=== PATIENT | female | born 1930 | race Caucasian/White ===

== ENCOUNTER → 2016-10-07 | Outpatient (CLI) | payer MEDICARE, OTHER ==
[~2016-10-07] MED LIST: AMLO5TAB2 PO; BRIM5DRO3 EACHEYE; CIPR250T27 PO; CLON1PAT2 TD; DOCU-30 PO; FURO-93 PO; GABA100C8 PO; GLIP10TA13 PO; LATA2.5D3 EACHEYE; LOSA100T6 PO; MAGN400T26 PO; METF500T4 PO; OMEP20TA62 PO; OXYC15TA PO; POTA10TA11 PO; SIME80TA16 PO; SPIR50TA PO
== END | disposition home or self-care (01) ==
LOC: CVU 09:38
PROVIDERS: ATTEND Family Medicine
DX: I70.293 Other atherosclerosis of native arteries of extremities, bilateral legs (principal); I10 Essential (primary) hypertension; E11.9 Type 2 diabetes mellitus without complications; B19.20 Unspecified viral hepatitis C without hepatic coma
CPT/HCPCS: 93922; 93925; 93978

== ENCOUNTER 2016-11-04 05:55 | Day surgery (SDC) | payer MEDICARE, OTHER ==
[~2016-11-04] VITALS: Ht 162.6 cm; Wt 57.0 kg
[2016-11-04 07:03] VITALS: BP 172/74
[2016-11-04] MEDS ORDERED: POLY17PO5 PO (07:10)
[2016-11-04] MEDS ORDERED: DOCU-30 PO (07:10)
[2016-11-04] MEDS ORDERED: LIDOCAINE 2%, 20ML ONE (07:14)
[2016-11-04] MEDS ORDERED: PROTAMINE SULFATE 10 MG/ML, 25ML ONE (07:14)
[2016-11-04] MEDS ORDERED: NALOXONE 1 MG/ML, 2ML ONE (07:15)
[2016-11-04] MEDS ORDERED: FENTANYL PF 100 MCG/2ML ONE (07:15)
[2016-11-04] MEDS ORDERED: MIDAZOLAM 1 MG/ML, 5ML ONE (07:15)
[2016-11-04] MEDS ORDERED: HEPARIN 1,000 UNITS/ML, 10ML ONE (07:15)
[2016-11-04 07:19] LABS: BLOOD UREA NITROGEN 17 mg/dL (7-18)
[2016-11-04] MEDS ORDERED: VISIPAQUE 270 MG/ML, 150ML BOTTLE ONE (07:30)
[2016-11-04] MEDS ORDERED: DIPHENHYDRAMINE 50 MG/ML, 1ML ONE (07:33)
== END 2016-11-04 12:50 | disposition home or self-care (01) ==
LOC: OUT 05:55
PROVIDERS: ATTEND Surgery Vascular Surgery
DX: I70.223 Atherosclerosis of native arteries of extremities with rest pain, bilateral legs (principal); I10 Essential (primary) hypertension; M19.90 Unspecified osteoarthritis, unspecified site; K21.9 Gastro-esophageal reflux disease without esophagitis; E11.39 Type 2 diabetes mellitus with other diabetic ophthalmic complication; H40.9 Unspecified glaucoma; M81.0 Age-related osteoporosis without current pathological fracture; Z85.3 Personal history of malignant neoplasm of breast; Z90.710 Acquired absence of both cervix and uterus; Z98.890 Other specified postprocedural states; Z87.891 Personal history of nicotine dependence; Z82.3 Family history of stroke; Z82.49 Family history of ischemic heart disease and other diseases of the circulatory system; Z88.2 Allergy status to sulfonamides; Z86.19 Personal history of other infectious and parasitic diseases
CPT/HCPCS: 36200; 36415; 71275; 74174; 75630; 80048; 85025; 99156; 99157; C1751; C1769; C1894; J1200; J2250; J3010; J3490; Q9966; J1644; J2720; J2310

== ENCOUNTER 2016-11-18 11:16 | Inpatient (IN) | payer MEDICARE, OTHER ==
[~2016-11-18] VITALS: Ht 162.6 cm; Wt 70.9 kg
[~2016-11-18 11:16] MED LIST changes: +GABA-826 PO; -GABA100C8 PO; +NITROPRUSSIDE 25 MG/ML, 2ML ONE; +POLY17PO5 PO
[2016-11-18] MEDS ORDERED: MIDAZOLAM 1 MG/ML, 2ML ONE (11:46)
[2016-11-18] MEDS ORDERED: FENTANYL PF 250 MCG/5ML ONE ×2 (11:46→15:28)
[2016-11-18] MEDS ORDERED: LACTATED RINGERS 1,000 ML IV SCH ×2 (12:00→12:06)
[2016-11-18] MEDS ORDERED: GABA-826 PO (12:13)
[2016-11-18] MEDS ORDERED: ASCO500T8 PO (12:13)
[2016-11-18] MEDS ORDERED: Iron PO (12:13)
[2016-11-18] MEDS ORDERED: ALBUMIN HUMAN 5% 500 ML ONE (12:20)
[2016-11-18] MEDS ORDERED: LIDOCAINE 1%, 2ML SQ PRN (12:30)
[2016-11-18 12:53] VITALS: BP 169/79
[2016-11-18] MEDS ORDERED: BACITRACIN 50,000 UNIT ONE (12:57)
[2016-11-18] MEDS ORDERED: THROMBIN 20,000 UNIT VIAL TP ONE ×2 (12:57→15:05)
[2016-11-18] MEDS ORDERED: PROTAMINE SULFATE 10 MG/ML, 5ML ONE (12:57)
[2016-11-18] MEDS ORDERED: HEPARIN 1,000 UNITS/ML, 10ML ONE (12:57)
[2016-11-18] MEDS ORDERED: HEPARIN 1,000 UNITS/ML, 30ML ONE (13:08)
[2016-11-18] MEDS ORDERED: CALCIUM CHLORIDE 10%, 10ML SYR ONE (13:27)
[2016-11-18] MEDS ORDERED: EPINEPHRINE SYRINGE 0.1 MG/ML, 10ML ONE (13:27)
[2016-11-18] MEDS ORDERED: ROCURONIUM 10 MG/ML ONE (13:27)
[2016-11-18] MEDS ORDERED: SUCCINYLCHOLINE 20 MG/ML, 10ML ONE (13:27)
[2016-11-18] MEDS ORDERED: CEFAZOLIN 1,000 MG ONE (13:27)
[2016-11-18] MEDS ORDERED: PROPOFOL 10 MG/ML, 20ML ONE (13:27)
[2016-11-18] MEDS ORDERED: MANNITOL PMX 20% 500 ML ONE (13:31)
[2016-11-18] MEDS ORDERED: HYDROmorphone 1 MG/ML, 1ML ONE (15:57)
[2016-11-18] MEDS ORDERED: FENTANYL PF 100 MCG/2ML ONE (15:57)
[2016-11-18] MEDS ORDERED: ESMOLOL/NS PMX 250 ML IV PRN (16:00)
[2016-11-18] MEDS ORDERED: OXYcodone 5 MG/5 ML ORAL.SOL UDC PO PRN (16:00)
[2016-11-18] MEDS ORDERED: EPHEDRINE 50 MG/ML, 1ML IVPush PRN (16:00)
[2016-11-18] MEDS ORDERED: ALBUTEROL SULFATE 2.5 MG/3 ML NPPB PRN (16:00)
[2016-11-18] MEDS ORDERED: MIDAZOLAM 1 MG/ML, 2ML IV PRN (16:00)
[2016-11-18] MEDS ORDERED: MEPERIDINE/PF 25MG/0.5ML IVPush PRN (16:00)
[2016-11-18] MEDS: FENTANYL PF 100 MCG/2ML IV PRN ×3 (16:00→21:09)
[2016-11-18] MEDS ORDERED: ONDANSETRON 2MG/ML, 2ML IVPush PRN (16:00)
[2016-11-18] MEDS ORDERED: METOPROLOL 1 MG/ML, 5ML IV PRN (16:00)
[2016-11-18] MEDS ORDERED: hydrALAzine 20 MG/ML, 1ML IV PRN (16:00)
[2016-11-18] MEDS ORDERED: PROMETHAZINE 25 MG/ML, 1ML IV PRN (16:00)
[2016-11-18] MEDS ORDERED: LABETALOL 5MG/ML, 20ML IV PRN (16:00)
[2016-11-18] MEDS ORDERED: ACETAMINOPHEN 325 MG TABLET PO PRN (16:00)
[2016-11-18] MEDS: HYDROmorphone 1 MG/ML, 1ML IV PRN ×2 (16:05→16:30)
[2016-11-18] MEDS: D5%-LACTATED RINGERS 1,000 ML IV SCH (17:52)
[2016-11-18] MEDS: HYDROcodone/APAP 10/325 MG TABLET PO PRN (17:52)
[2016-11-18 18:17] LABS: BLOOD UREA NITROGEN 19 mg/dL (7-18)
[2016-11-18 18:18] LABS: ASPARTATE AMINO TRANSFERASE 49 U/L (15-37)
[2016-11-18 18:26] LABS: DIFF TOTAL CELLS COUNTED 100 CELL DIFF
[2016-11-18 18:27] LABS: VERIFY COUNTS? YES
[2016-11-18 18:28] LABS: ANISOCYTOSIS 1+
[2016-11-18] MEDS: LATANOPROST OPHTH 0.005%, 2.5ML OP SCH (21:04)
[2016-11-18] MEDS: SODIUM CHLORIDE FLUSH 10ML SYR IVF SCH (21:04)
[2016-11-18] MEDS: BRIMONIDINE TARTRATE OPHTH 0.15%, 5ML OP SCH (21:04)
[2016-11-18] MEDS: GABAPENTIN 300 MG CAPSULE PO SCH (21:04)
[2016-11-18] MEDS: ONDANSETRON 2MG/ML, 2ML IV PRN (21:11)
[2016-11-18] MEDS: INSULIN REGULAR, HUMAN 100 UNIT/ML 3ML VIAL LOW DOSE SS SQ-INSULIN SCH (21:45)
[2016-11-18] MEDS: INSULIN ASPART 100 UNITS/ML, PEN SQ-INSULIN SCH (21:50)
[2016-11-19] MEDS: ONDANSETRON 2MG/ML, 2ML IV PRN ×3 (00:36→10:53)
[2016-11-19] MEDS: FENTANYL PF 100 MCG/2ML IV PRN ×2 (00:36→04:25)
[2016-11-19] MEDS: D5%-LACTATED RINGERS 1,000 ML IV SCH (03:41)
[2016-11-19 04:00] VITALS: BP 149/55
[2016-11-19 04:41] LABS: ABG COLLECTION SITE NOT DOCUMENTED
[2016-11-19 04:48] LABS: BLOOD UREA NITROGEN 26 mg/dL (7-18)
[2016-11-19] MEDS: SODIUM CHLORIDE 0.9% 1,000 ML IV SCH ×3 (04:53→20:18)
[2016-11-19 05:45] LABS: DIFF TOTAL CELLS COUNTED 100 CELL DIFF
[2016-11-19 05:47] LABS: ANISOCYTOSIS 1+; VERIFY COUNTS? YES
[2016-11-19] MEDS: GABAPENTIN 100 MG CAPSULE PO SCH ×2 (06:11→12:25)
[2016-11-19] MEDS: INSULIN REGULAR, HUMAN 100 UNIT/ML 3ML VIAL LOW DOSE SS SQ-INSULIN SCH ×2 (07:00→10:45)
[2016-11-19] MEDS: INSULIN ASPART 100 UNITS/ML, PEN SQ-INSULIN SCH ×4 (07:17→21:29)
[2016-11-19] MEDS: HYDROcodone/APAP 10/325 MG TABLET PO PRN (08:20)
[2016-11-19] MEDS: OMEPRAZOLE 20 MG CAPSULE.DR PO SCH (08:21)
[2016-11-19] MEDS: SODIUM CHLORIDE FLUSH 10ML SYR IVF SCH ×2 (08:23→21:00)
[2016-11-19] MEDS: BRIMONIDINE TARTRATE OPHTH 0.15%, 5ML OP SCH ×2 (08:23→21:25)
[2016-11-19] MEDS: CEFTRIAXONE PMX 1GM/50ML 50 ML IV SCH (18:12)
[2016-11-19] MEDS ORDERED: DILTIAZEM 5 MG/ML, 5ML ONE (20:07)
[2016-11-19] MEDS: LABETALOL 5MG/ML, 20ML IVPush PRN (20:19)
[2016-11-19] MEDS ORDERED: DILTIAZEM 5 MG/ML, 5ML IVPush ONE ×2 (20:30)
[2016-11-19 20:46] LABS: IS PT STATUS REG ER OR PRE ER? NO
[2016-11-19] MEDS: GABAPENTIN 300 MG CAPSULE PO SCH (21:24)
[2016-11-19] MEDS: LATANOPROST OPHTH 0.005%, 2.5ML OP SCH (21:25)
[2016-11-20] MEDS: SODIUM CHLORIDE 0.9% 1,000 ML IV SCH ×3 (02:51→13:15)
[2016-11-20 03:08] LABS: BLOOD UREA NITROGEN 29 mg/dL (7-18)
[2016-11-20 03:11] LABS: ASPARTATE AMINO TRANSFERASE 49 U/L (15-37)
[2016-11-20 04:46] LABS: IS PT STATUS REG ER OR PRE ER? NO
[2016-11-20 05:22] VITALS: BP 132/77
[2016-11-20] MEDS: GABAPENTIN 100 MG CAPSULE PO SCH ×2 (06:31→13:15)
[2016-11-20] MEDS: INSULIN ASPART 100 UNITS/ML, PEN SQ-INSULIN SCH ×4 (06:40→21:55)
[2016-11-20] MEDS: OMEPRAZOLE 20 MG CAPSULE.DR PO SCH (07:42)
[2016-11-20] MEDS: HYDROcodone/APAP 10/325 MG TABLET PO PRN ×2 (07:42→18:10)
[2016-11-20] MEDS: BRIMONIDINE TARTRATE OPHTH 0.15%, 5ML OP SCH (09:00)
[2016-11-20] MEDS: SODIUM CHLORIDE FLUSH 10ML SYR IVF SCH ×2 (09:54→21:55)
[2016-11-20] MEDS ORDERED: LATANOPROST OPHTH 0.005%, 2.5ML OP SCH (11:23)
[2016-11-20] MEDS ORDERED: BRIMONIDINE TARTRATE OPHTH 0.15%, 5ML OP SCH ×2 (11:23→21:27)
[2016-11-20] MEDS: CEFTRIAXONE PMX 1GM/50ML 50 ML IV SCH (16:59)
[2016-11-20] MEDS: ENOXAPARIN 40 MG/0.4 ML SQ SCH (17:00)
[2016-11-20 19:52] VITALS: BP 108/76
[2016-11-20] MEDS: GABAPENTIN 300 MG CAPSULE PO SCH (21:54)
[2016-11-21 02:47] VITALS: BP 102/72
[2016-11-21 05:39] LABS: BLOOD UREA NITROGEN 25 mg/dL (7-18)
[2016-11-21] MEDS: HYDROcodone/APAP 10/325 MG TABLET PO PRN ×3 (06:01→23:28)
[2016-11-21] MEDS: GABAPENTIN 100 MG CAPSULE PO SCH ×2 (06:01→11:42)
[2016-11-21 06:42] VITALS: BP 109/76
[2016-11-21] MEDS: INSULIN ASPART 100 UNITS/ML, PEN SQ-INSULIN SCH ×4 (06:57→21:04)
[2016-11-21] MEDS: SODIUM CHLORIDE FLUSH 10ML SYR IVF SCH ×2 (08:15→20:16)
[2016-11-21] MEDS: OMEPRAZOLE 20 MG CAPSULE.DR PO SCH (08:15)
[2016-11-21] MEDS: BRIMONIDINE TARTRATE OPHTH 0.15%, 5ML OP SCH ×2 (08:16→20:13)
[2016-11-21 14:25] VITALS: BP 105/70
[2016-11-21] MEDS: ENOXAPARIN 40 MG/0.4 ML SQ SCH (17:24)
[2016-11-21 20:03] VITALS: BP 117/72
[2016-11-21] MEDS: LATANOPROST OPHTH 0.005%, 2.5ML OP SCH (20:13)
[2016-11-21] MEDS: GABAPENTIN 300 MG CAPSULE PO SCH (20:13)
[2016-11-21] MEDS: CEFTRIAXONE PMX 1GM/50ML 50 ML IV SCH (20:17)
[2016-11-22 03:20] VITALS: BP_SYST 144; BP_SYST 90; BP_DIAS 60; BP_DIAS 64
[2016-11-22 03:32] LABS: BLOOD UREA NITROGEN 22 mg/dL (7-18)
[2016-11-22] MEDS ORDERED: LACTATED RINGERS 500 ML IVBOLUS ONE (04:00)
[2016-11-22 05:00] VITALS: BP_SYST 160; BP_SYST 93; BP_DIAS 58; BP_DIAS 68
[2016-11-22] MEDS: GABAPENTIN 100 MG CAPSULE PO SCH ×2 (06:16→12:00)
[2016-11-22] MEDS: INSULIN ASPART 100 UNITS/ML, PEN SQ-INSULIN SCH ×4 (07:00→20:48)
[2016-11-22] MEDS: OMEPRAZOLE 20 MG CAPSULE.DR PO SCH (08:36)
[2016-11-22] MEDS: SODIUM CHLORIDE FLUSH 10ML SYR IVF SCH ×2 (08:36→20:48)
[2016-11-22] MEDS: BRIMONIDINE TARTRATE OPHTH 0.15%, 5ML OP SCH ×2 (08:36→20:51)
[2016-11-22 08:40] VITALS: BP_SYST 184; BP_SYST 87; BP_DIAS 61; BP_DIAS 64
[2016-11-22 14:30] VITALS: BP 157/62
[2016-11-22] MEDS: HYDROcodone/APAP 10/325 MG TABLET PO PRN (17:42)
[2016-11-22] MEDS: CEFTRIAXONE PMX 1GM/50ML 50 ML IV SCH (18:02)
[2016-11-22] MEDS: ENOXAPARIN 40 MG/0.4 ML SQ SCH (18:02)
[2016-11-22] MEDS: DOCUSATE 100 MG CAPSULE PO SCH (20:48)
[2016-11-22] MEDS: LATANOPROST OPHTH 0.005%, 2.5ML OP SCH (20:52)
[2016-11-22] MEDS: GABAPENTIN 300 MG CAPSULE PO SCH (20:53)
[2016-11-23] VITALS (8 sets, daily range): BP systolic 131–220; BP diastolic 66–91
[2016-11-23] MEDS: HYDROcodone/APAP 10/325 MG TABLET PO PRN ×3 (00:01→21:21)
[2016-11-23] MEDS: LABETALOL 5MG/ML, 20ML IVPush PRN ×5 (03:00→21:15)
[2016-11-23] MEDS: GABAPENTIN 100 MG CAPSULE PO SCH ×2 (06:02→11:47)
[2016-11-23 06:22] LABS: BLOOD UREA NITROGEN 17 mg/dL (7-18)
[2016-11-23] MEDS: BRIMONIDINE TARTRATE OPHTH 0.15%, 5ML OP SCH ×2 (08:15→21:00)
[2016-11-23] MEDS: OMEPRAZOLE 20 MG CAPSULE.DR PO SCH (08:15)
[2016-11-23] MEDS: DOCUSATE 100 MG CAPSULE PO SCH ×2 (08:15→21:06)
[2016-11-23] MEDS: INSULIN ASPART 100 UNITS/ML, PEN SQ-INSULIN SCH ×4 (08:16→21:11)
[2016-11-23] MEDS: SODIUM CHLORIDE FLUSH 10ML SYR IVF SCH ×2 (08:19→21:04)
[2016-11-23] MEDS: POLYETHYLENE GLYCOL 17 GM PACKET PO PRN (13:46)
[2016-11-23] MEDS: ENOXAPARIN 40 MG/0.4 ML SQ SCH (17:04)
[2016-11-23] MEDS: LATANOPROST OPHTH 0.005%, 2.5ML OP SCH (21:00)
[2016-11-23] MEDS: GABAPENTIN 300 MG CAPSULE PO SCH (21:06)
[2016-11-24] VITALS (8 sets, daily range): BP systolic 148–203; BP diastolic 66–82
[2016-11-24 05:32] LABS: BLOOD UREA NITROGEN 10 mg/dL (7-18)
[2016-11-24] MEDS: GABAPENTIN 100 MG CAPSULE PO SCH ×2 (05:41→13:08)
[2016-11-24] MEDS: HYDROcodone/APAP 10/325 MG TABLET PO PRN ×2 (05:42→16:29)
[2016-11-24] MEDS ORDERED: cloniDINE 0.1MG PATCH TD SCH (09:00)
[2016-11-24] MEDS: INSULIN ASPART 100 UNITS/ML, PEN SQ-INSULIN SCH ×4 (09:50→20:56)
[2016-11-24] MEDS: SODIUM CHLORIDE FLUSH 10ML SYR IVF SCH ×2 (09:50→20:39)
[2016-11-24] MEDS: OMEPRAZOLE 20 MG CAPSULE.DR PO SCH (09:50)
[2016-11-24] MEDS: DOCUSATE 100 MG CAPSULE PO SCH ×2 (09:51→20:46)
[2016-11-24] MEDS: metFORMIN 500 MG TABLET PO SCH ×3 (09:51→20:46)
[2016-11-24] MEDS: LISINOPRIL 5 MG TABLET PO SCH ×2 (09:51→21:15)
[2016-11-24] MEDS: POLYETHYLENE GLYCOL 17 GM PACKET PO PRN (09:57)
[2016-11-24] MEDS: BRIMONIDINE TARTRATE OPHTH 0.15%, 5ML OP SCH ×2 (10:01→20:46)
[2016-11-24] MEDS: LABETALOL 5MG/ML, 20ML IVPush PRN ×3 (10:41→20:37)
[2016-11-24] MEDS ORDERED: BISACODYL 10 MG SUPP PR PRN (17:30)
[2016-11-24] MEDS ORDERED: MAGNESIUM HYDROXIDE 8%, 30ML UDC PO SCH (17:30)
[2016-11-24] MEDS: ENOXAPARIN 40 MG/0.4 ML SQ SCH (17:57)
[2016-11-24] MEDS: hydrALAzine 20 MG/ML, 1ML IV PRN ×2 (17:58→23:26)
[2016-11-24] MEDS ORDERED: LACTULOSE 20 GM/30 ML UDC PO SCH (20:00)
[2016-11-24] MEDS: LATANOPROST OPHTH 0.005%, 2.5ML OP SCH (20:46)
[2016-11-24] MEDS: GABAPENTIN 300 MG CAPSULE PO SCH (20:46)
[2016-11-25 01:00] VITALS: BP 133/64
[2016-11-25] MEDS: INSULIN ASPART 100 UNITS/ML, PEN SQ-INSULIN SCH ×4 (06:27→21:30)
[2016-11-25] MEDS: GABAPENTIN 100 MG CAPSULE PO SCH ×2 (06:27→11:49)
[2016-11-25] MEDS: hydrALAzine 20 MG/ML, 1ML IV PRN (08:21)
[2016-11-25] MEDS: OMEPRAZOLE 20 MG CAPSULE.DR PO SCH (08:22)
[2016-11-25] MEDS: LISINOPRIL 5 MG TABLET PO SCH (08:22)
[2016-11-25] MEDS: BRIMONIDINE TARTRATE OPHTH 0.15%, 5ML OP SCH ×2 (08:22→20:26)
[2016-11-25] MEDS: metFORMIN 500 MG TABLET PO SCH ×3 (08:23→20:13)
[2016-11-25] MEDS: SODIUM CHLORIDE FLUSH 10ML SYR IVF SCH ×2 (08:23→20:26)
[2016-11-25] MEDS: DOCUSATE 100 MG CAPSULE PO SCH ×2 (08:24→20:13)
[2016-11-25 08:43] VITALS: BP 196/75
[2016-11-25 08:47] LABS: OCCBLD OBC PASS
[2016-11-25] MEDS ORDERED: HYDR-3307 PO (12:17)
[2016-11-25] MEDS ORDERED: INSU100I18 SQ-INSULIN (12:17)
[2016-11-25 13:27] VITALS: BP 153/71
[2016-11-25] MEDS: ENOXAPARIN 40 MG/0.4 ML SQ SCH (17:15)
[2016-11-25 19:40] VITALS: BP 194/61
[2016-11-25] MEDS: GABAPENTIN 300 MG CAPSULE PO SCH (20:13)
[2016-11-25] MEDS: LISINOPRIL 10 MG TABLET PO SCH (20:13)
[2016-11-25] MEDS: LATANOPROST OPHTH 0.005%, 2.5ML OP SCH (20:26)
[2016-11-25 22:03] VITALS: BP 148/68
[2016-11-26 01:20] VITALS: BP 132/60
[2016-11-26] MEDS: GABAPENTIN 100 MG CAPSULE PO SCH ×2 (05:36→12:08)
[2016-11-26] MEDS: INSULIN ASPART 100 UNITS/ML, PEN SQ-INSULIN SCH ×2 (06:33→12:08)
[2016-11-26 06:37] VITALS: BP 193/62
[2016-11-26] MEDS: LISINOPRIL 10 MG TABLET PO SCH (08:55)
[2016-11-26] MEDS: metFORMIN 500 MG TABLET PO SCH (08:55)
[2016-11-26] MEDS: OMEPRAZOLE 20 MG CAPSULE.DR PO SCH (08:55)
[2016-11-26] MEDS: BRIMONIDINE TARTRATE OPHTH 0.15%, 5ML OP SCH (08:55)
[2016-11-26] MEDS: SODIUM CHLORIDE FLUSH 10ML SYR IVF SCH (08:56)
[2016-11-26] MEDS: DOCUSATE 100 MG CAPSULE PO SCH (08:56)
[2016-11-26 12:16] VITALS: BP 184/65
[2016-11-26] MEDS: LABETALOL 5MG/ML, 20ML IVPush PRN (12:42)
== END 2016-11-26 14:49 | DRG 269 ==
LOC: ORIP 11:16 → CCU 16:40 → 5SO 11-20 18:38 → 4NOR 11-24 20:15
PROVIDERS: ADMIT Surgery Vascular Surgery
PROC: 04C00ZZ Extirpation of Matter from Abdominal Aorta, Open Approach (ICD-10-PCS; principal; 2016-11-18 13:30)
PROC: 0T9B70Z Drainage of Bladder with Drainage Device, Via Natural or Artificial Opening (ICD-10-PCS; 2016-11-19)
DX: I70.0 Atherosclerosis of aorta (principal); E46 Unspecified protein-calorie malnutrition; I47.1 Supraventricular tachycardia; J98.11 Atelectasis; K91.3 Postprocedural intestinal obstruction; N39.0 Urinary tract infection, site not specified; E11.51 Type 2 diabetes mellitus with diabetic peripheral angiopathy without gangrene; I77.1 Stricture of artery; K74.60 Unspecified cirrhosis of liver; B18.2 Chronic viral hepatitis C; M51.37 Other intervertebral disc degeneration, lumbosacral region; D64.9 Anemia, unspecified; G89.29 Other chronic pain; I11.9 Hypertensive heart disease without heart failure; I70.211 Atherosclerosis of native arteries of extremities with intermittent claudication, right leg; K21.9 Gastro-esophageal reflux disease without esophagitis; K64.9 Unspecified hemorrhoids; Y83.8 Other surgical procedures as the cause of abnormal reaction of the patient, or of later complication, without mention of misadventure at the time of the procedure; Y82.8 Other medical devices associated with adverse incidents; Z79.84 Long term (current) use of oral hypoglycemic drugs; Z79.899 Other long term (current) drug therapy; Z85.3 Personal history of malignant neoplasm of breast; Z88.2 Allergy status to sulfonamides; Z90.710 Acquired absence of both cervix and uterus; I70.8 Atherosclerosis of other arteries
CPT/HCPCS: 36415; 36600; 71010; 80048; 80053; 81001; 81003; 82272; 82803; 82962; 83735; 84484; 85018; 85025; 85610; 85730; 86850; 86900; 86923; 87040; 87081; 87086; 93005; J0690; J0696; J1170; J1644; J1650; J1815; J2250; J2405; J2704; J2720; J3010; J3490; J7120; P9045; C1757; C1781; J0330; J0360; J7030; J7121

== ENCOUNTER 2017-01-06 18:39 | Emergency (ER) | payer MEDICARE, OTHER ==
[~2017-01-06] VITALS: Ht 162.6 cm; Wt 56.0 kg
[~2017-01-06 18:39] MED LIST changes: +ASCO500T8 PO; +HYDR-3307 PO; +INSU100I18 SQ-INSULIN; +Iron PO; -NITROPRUSSIDE 25 MG/ML, 2ML ONE
[2017-01-06] MEDS ORDERED: CHOLESTEROL MED (19:16)
[2017-01-06] MEDS ORDERED: DIURETIC (19:16)
[2017-01-06] MEDS ORDERED: ALUMINUM/MAG/SIMETHICONE 30 ML UDC PO ONE (19:30)
[2017-01-06 19:57] LABS: BLOOD UREA NITROGEN 26 mg/dL (7-18)
[2017-01-06 20:03] LABS: IS PT STATUS REG ER OR PRE ER? YES
[2017-01-06] MEDS ORDERED: SODIUM CHLORIDE 0.9% 1,000 ML IV ONE (20:03)
[2017-01-06] MEDS ORDERED: SODIUM CHLORIDE 0.9% 1,000ML IVBOLUS ONE (20:30)
[2017-01-06] MEDS ORDERED: SODIUM CHLORIDE FLUSH 10ML SYR IVF ONE (20:30)
[2017-01-06] MEDS ORDERED: LABETALOL 5MG/ML, 20ML ONE (20:52)
[2017-01-06] MEDS ORDERED: LABETALOL 5MG/ML, 20ML IVPush STA (20:55)
[2017-01-06] MEDS ORDERED: LABETALOL 5MG/ML, 20ML IVPush ONE ×2 (21:00→22:00)
[2017-01-06] MEDS: LABETALOL 5MG/ML, 20ML IVPush ONE ×2 (21:00→21:55)
[2017-01-06] MEDS ORDERED: FAMOTIDINE 20 MG/2 ML IVPush ONE (22:00)
[2017-01-06] MEDS ORDERED: FAMOTIDINE 20 MG/2 ML ONE (22:09)
[2017-01-06 23:31] VITALS: BP 148/60
== END 2017-01-06 23:54 | disposition home or self-care (01) ==
LOC: ED 21:30
DX: I10 Essential (primary) hypertension (principal); E86.0 Dehydration; K21.9 Gastro-esophageal reflux disease without esophagitis; E11.9 Type 2 diabetes mellitus without complications; Z90.710 Acquired absence of both cervix and uterus
CPT/HCPCS: 36415; 80048; 82040; 84484; 85025; 93005; 96361; 96374; 96375; 99285; J7030; S0028

== ENCOUNTER 2017-08-21 18:52 | Inpatient (IN) | payer MEDICARE, OTHER ==
[~2017-08-21] VITALS: Ht 162.6 cm; Wt 67.8 kg
[~2017-08-21 18:52] MED LIST changes: +CHOLESTEROL MED; +DIURETIC; +DOCU-131 PO; -DOCU-30 PO
[2017-08-21] MEDS ORDERED: CLON0.1T PO (19:28)
[2017-08-21] MEDS ORDERED: GABA-827 PO (19:29)
[2017-08-21] MEDS ORDERED: FERR324T5 PO (19:30)
[2017-08-21] MEDS ORDERED: COLE1TAB2 PO (19:31)
[2017-08-21] MEDS ORDERED: LISI2.5T PO (19:32)
[2017-08-21] MEDS ORDERED: TRIA1TAB3 PO (19:33)
[2017-08-21] MEDS ORDERED: SODIUM CHLORIDE 0.9% 1,000 ML IV ONE (19:38)
[2017-08-21] MEDS ORDERED: PANTOPRAZOLE 40 MG IV ONE (19:57)
[2017-08-21] MEDS ORDERED: PANTOPRAZOLE 40 MG IV IVPush ONE (20:00)
[2017-08-21] MEDS ORDERED: DIPHENHYDRAMINE 50 MG/ML, 1ML IVPush ONE (20:00)
[2017-08-21] MEDS ORDERED: SODIUM CHLORIDE FLUSH 10ML SYR IVF ONE (20:00)
[2017-08-21 20:10] LABS: BASOPHILS # (AUTO) 0.03 x10^3/uL (0-0.1); BASOPHILS % (AUTO) 0 % (0-1); EOSINOPHILS # (AUTO) 0.48 x10^3/uL (0-0.4); EOSINOPHILS % (AUTO) 5 % (1-7); LYMPHOCYTES # (AUTO) 1.72 x10^3/uL (1-3.4); LYMPHOCYTES % (AUTO) 19 % (22-44); MD NO; MEAN CORPUSCULAR HEMOGLOBIN 26.5 pg (27.0-34.8); MEAN CORPUSCULAR HGB CONC 32.7 g/dL (32.4-35.8); MEAN CORPUSCULAR VOLUME 81.1 fL (80-100); MEAN PLATELET VOLUME 8.5 fL (7.4-10.4); MONOCYTES # (AUTO) 0.67 x10^3/uL (0.2-0.8); MONOCYTES % (AUTO) 8 % (2-9); NEUTROPHILS # (AUTO) 6.03 x10^3/uL (1.8-6.8); NEUTROPHILS % (AUTO) 68 % (42-75); PLATELET COUNT 314 x10^3/uL (130-400); RED CELL DISTRIBUTION WIDTH 18.8 % (9.6-15.2)
[2017-08-21 20:19] LABS: PROTHROMBIN TIME 10.4 Seconds (9.6-11.5)
[2017-08-21 20:23] LABS: ALANINE AMINOTRANSFERASE 36 U/L (12-78); ANION GAP 15 mmol/L (5-15); CALCIUM 8.7 mg/dL (8.5-10.1); CHLORIDE 104 mmol/L (98-107); CREATININE 1.69 mg/dL (0.55-1.02)
[2017-08-21 20:25] LABS: ALKALINE PHOSPHATASE 282 U/L (45-117); BILIRUBIN,TOTAL 0.2 mg/dL (0.2-1.0)
[2017-08-21 20:29] LABS: TROPONIN I 0.032 ng/mL (0.000-0.045)
[2017-08-21] MEDS ORDERED: DIPHENHYDRAMINE 50 MG/ML, 1ML ONE (20:29)
[2017-08-21] MEDS ORDERED: methylPREDNISolone SOD SUCC 125 MG/2 ML ONE (20:30)
[2017-08-21] MEDS: methylPREDNISolone SOD SUCC 125 MG/2 ML IVPush SCH ×2 (20:34→23:28)
[2017-08-21] MEDS ORDERED: SODIUM CHLORIDE FLUSH 10ML SYR IVF PRN (22:30)
[2017-08-21] MEDS: CLONIDINE MC SCH (23:00)
[2017-08-21] MEDS: [UNRECOGNIZED DRUG - OTHER] MC SCH (23:00)
[2017-08-21] MEDS ORDERED: ONDANSETRON 2MG/ML, 2ML IVPush PRN (23:00)
[2017-08-21 23:34] LABS: HEMOGLOBIN A1C 11.7 % (4.2-6.3)
[2017-08-21 23:47] VITALS: BP 99/65
[2017-08-21] MEDS ORDERED: OMNIPAQUE 350 MG/ML, 100ML BOTTLE ONE (23:48)
[2017-08-21] MEDS: GABAPENTIN 300 MG CAPSULE PO SCH (23:57)
[2017-08-21] MEDS: SODIUM CHLORIDE 0.9% 1,000 ML IV SCH (23:58)
[2017-08-21] MEDS: BISACODYL 10 MG SUPP PR SCH (23:58)
[2017-08-22] VITALS (7 sets, daily range): BP systolic 98–219; BP diastolic 58–85
[2017-08-22] MEDS: BRIMONIDINE TARTRATE OPHTH 0.15%, 5ML EACHEYE SCH ×3 (00:26→21:25)
[2017-08-22] MEDS: INSULIN LISPRO 100 UNITS/ML, PEN SQ-INSULIN SCH ×5 (01:22→21:27)
[2017-08-22 01:37] LABS: MICROSCOPIC AUTO
[2017-08-22 01:41] LABS: CULTURE INDICATED? YES
[2017-08-22 02:54] LABS: ALBUMIN 2.6 g/dL (3.4-5.0); ANION GAP 10 mmol/L (5-15); BASOPHILS # (AUTO) 0.02 x10^3/uL (0-0.1); BASOPHILS % (AUTO) 0 % (0-1); CALCIUM 8.3 mg/dL (8.5-10.1); CHLORIDE 108 mmol/L (98-107); EOSINOPHILS # (AUTO) 0.04 x10^3/uL (0-0.4); EOSINOPHILS % (AUTO) 1 % (1-7); LYMPHOCYTES # (AUTO) 0.67 x10^3/uL (1-3.4); LYMPHOCYTES % (AUTO) 9 % (22-44); MD NO; MEAN CORPUSCULAR HEMOGLOBIN 26.5 pg (27.0-34.8); MEAN CORPUSCULAR HGB CONC 32.7 g/dL (32.4-35.8); MEAN PLATELET VOLUME 8.8 fL (7.4-10.4); MONOCYTES # (AUTO) 0.11 x10^3/uL (0.2-0.8); MONOCYTES % (AUTO) 2 % (2-9); NEUTROPHILS # (AUTO) 6.47 x10^3/uL (1.8-6.8); NEUTROPHILS % (AUTO) 89 % (42-75); PLATELET COUNT 244 x10^3/uL (130-400); RED BLOOD COUNT 3.21 x10^6/uL (3.82-5.3); RED CELL DISTRIBUTION WIDTH 19.4 % (9.6-15.2)
[2017-08-22 02:57] LABS: ALANINE AMINOTRANSFERASE 29 U/L (12-78); ALKALINE PHOSPHATASE 238 U/L (45-117); BILIRUBIN,TOTAL 0.4 mg/dL (0.2-1.0); CREATININE 1.31 mg/dL (0.55-1.02); TOTAL PROTEIN 6.2 g/dL (6.4-8.2)
[2017-08-22 02:59] LABS: TROPONIN I 0.024 ng/mL (0.000-0.045)
[2017-08-22] MEDS: CEFTRIAXONE PMX 1GM/50ML 50 ML IV SCH (04:36)
[2017-08-22] MEDS: [UNRECOGNIZED DRUG - OTHER] MC SCH ×3 (07:00→22:15)
[2017-08-22] MEDS: CLONIDINE MC SCH ×3 (07:00→22:15)
[2017-08-22] MEDS: SODIUM CHLORIDE 0.9% 1,000 ML IV SCH ×2 (08:00→17:15)
[2017-08-22] MEDS: COLESTIPOL 1 GM TABLET PO SCH ×2 (08:16→21:25)
[2017-08-22] MEDS: PANTOPRAZOLE 40 MG IV IVPush SCH ×2 (08:16→21:26)
[2017-08-22] MEDS: ASCORBIC ACID 500 MG TABLET PO SCH (08:17)
[2017-08-22] MEDS: BISACODYL 10 MG SUPP PR SCH (08:17)
[2017-08-22 08:47] LABS: TROPONIN I < 0.015 ng/mL (0.000-0.045)
[2017-08-22] MEDS ORDERED: OMEPRAZOLE 20 MG CAPSULE.DR PO SCH (09:00)
[2017-08-22] MEDS ORDERED: BISACODYL 10 MG SUPP PR PRN (12:00)
[2017-08-22] MEDS: SODIUM POLYSTYRENE SULFONATE ORAL SUSP PO SCH ×3 (12:09→22:13)
[2017-08-22] MEDS: GABAPENTIN 300 MG CAPSULE PO SCH (21:25)
[2017-08-22] MEDS: MOVIPREP POWDER 1 PREP KIT PO SCH (21:25)
[2017-08-23 01:44] VITALS: BP 114/68
[2017-08-23] MEDS: CEFTRIAXONE PMX 1GM/50ML 50 ML IV SCH (04:28)
[2017-08-23] MEDS: MOVIPREP POWDER 1 PREP KIT PO SCH ×2 (05:03→20:35)
[2017-08-23 05:15] LABS: BASOPHILS # (AUTO) 0.02 x10^3/uL (0-0.1); BASOPHILS % (AUTO) 0 % (0-1); EOSINOPHILS # (AUTO) 0.25 x10^3/uL (0-0.4); EOSINOPHILS % (AUTO) 3 % (1-7); LYMPHOCYTES # (AUTO) 1.19 x10^3/uL (1-3.4); LYMPHOCYTES % (AUTO) 15 % (22-44); MD NO; MEAN CORPUSCULAR HEMOGLOBIN 26.4 pg (27.0-34.8); MEAN CORPUSCULAR HGB CONC 32.5 g/dL (32.4-35.8); MEAN CORPUSCULAR VOLUME 81.2 fL (80-100); MEAN PLATELET VOLUME 7.7 fL (7.4-10.4); MONOCYTES # (AUTO) 0.56 x10^3/uL (0.2-0.8); MONOCYTES % (AUTO) 7 % (2-9); NEUTROPHILS # (AUTO) 5.77 x10^3/uL (1.8-6.8); NEUTROPHILS % (AUTO) 74 % (42-75); PLATELET COUNT 288 x10^3/uL (130-400); RED BLOOD COUNT 3.27 x10^6/uL (3.82-5.3); RED CELL DISTRIBUTION WIDTH 19.3 % (9.6-15.2)
[2017-08-23 05:27] LABS: CHLORIDE 108 mmol/L (98-107)
[2017-08-23 05:34] LABS: ALANINE AMINOTRANSFERASE 27 U/L (12-78); ALBUMIN 2.7 g/dL (3.4-5.0); ALKALINE PHOSPHATASE 206 U/L (45-117); ANION GAP 13 mmol/L (5-15); BILIRUBIN,TOTAL 0.3 mg/dL (0.2-1.0); CALCIUM 7.7 mg/dL (8.5-10.1); CREATININE 1.03 mg/dL (0.55-1.02)
[2017-08-23] MEDS: [UNRECOGNIZED DRUG - OTHER] MC SCH ×3 (06:48→20:36)
[2017-08-23] MEDS: CLONIDINE MC SCH ×3 (06:48→20:36)
[2017-08-23 06:51] VITALS: BP 156/79
[2017-08-23] MEDS: PANTOPRAZOLE 40 MG IV IVPush SCH ×2 (07:34→20:35)
[2017-08-23] MEDS: BRIMONIDINE TARTRATE OPHTH 0.15%, 5ML EACHEYE SCH ×2 (07:49→20:34)
[2017-08-23] MEDS ORDERED: GOLYTELY 4,000ML ORAL.SOL ONE (08:53)
[2017-08-23] MEDS ORDERED: GOLYTELY 4,000ML ORAL.SOL PO ONE (09:00)
[2017-08-23] MEDS: INSULIN LISPRO 100 UNITS/ML, PEN SQ-INSULIN SCH ×4 (09:43→20:35)
[2017-08-23] MEDS: SODIUM CHLORIDE 0.9% 1,000 ML IV SCH ×3 (10:25→17:14)
[2017-08-23] MEDS: COLESTIPOL 1 GM TABLET PO SCH ×2 (11:50→20:35)
[2017-08-23] MEDS ORDERED: ESMOLOL 100 MG/10 ML ONE (13:27)
[2017-08-23] MEDS ORDERED: ADENOSINE 6 MG/2 ML ONE (13:31)
[2017-08-23] MEDS ORDERED: LABETALOL 5MG/ML, 20ML ONE (14:09)
[2017-08-23] MEDS ORDERED: LABETALOL 5MG/ML, 20ML IV PRN (14:30)
[2017-08-23] MEDS: ASCORBIC ACID 500 MG TABLET PO SCH (15:08)
[2017-08-23 15:15] VITALS: BP 152/81
[2017-08-23] MEDS ORDERED: hydrALAzine 20 MG/ML, 1ML ONE (15:40)
[2017-08-23] MEDS ORDERED: PROPOFOL 10 MG/ML, 50ML ONE (15:40)
[2017-08-23 19:33] VITALS: BP 108/68
[2017-08-23] MEDS: GABAPENTIN 300 MG CAPSULE PO SCH (20:35)
[2017-08-24 02:00] VITALS: BP 132/74
[2017-08-24] MEDS: SODIUM CHLORIDE 0.9% 1,000 ML IV SCH ×2 (03:43→12:41)
[2017-08-24] MEDS: MOVIPREP POWDER 1 PREP KIT PO SCH (03:43)
[2017-08-24] MEDS: CEFTRIAXONE PMX 1GM/50ML 50 ML IV SCH (03:43)
[2017-08-24] MEDS: [UNRECOGNIZED DRUG - OTHER] MC SCH ×3 (07:00→20:24)
[2017-08-24] MEDS: CLONIDINE MC SCH ×3 (07:00→20:24)
[2017-08-24 07:07] VITALS: BP 109/70
[2017-08-24] MEDS: INSULIN LISPRO 100 UNITS/ML, PEN SQ-INSULIN SCH ×4 (07:48→20:22)
[2017-08-24 08:55] LABS: BASOPHILS # (AUTO) 0.03 x10^3/uL (0-0.1); BASOPHILS % (AUTO) 0 % (0-1); EOSINOPHILS # (AUTO) 0.16 x10^3/uL (0-0.4); EOSINOPHILS % (AUTO) 2 % (1-7); LYMPHOCYTES # (AUTO) 1.08 x10^3/uL (1-3.4); LYMPHOCYTES % (AUTO) 13 % (22-44); MD NO; MEAN CORPUSCULAR HEMOGLOBIN 26.3 pg (27.0-34.8); MEAN CORPUSCULAR HGB CONC 32.2 g/dL (32.4-35.8); MEAN CORPUSCULAR VOLUME 81.8 fL (80-100); MONOCYTES # (AUTO) 0.49 x10^3/uL (0.2-0.8); MONOCYTES % (AUTO) 6 % (2-9); NEUTROPHILS # (AUTO) 6.41 x10^3/uL (1.8-6.8); NEUTROPHILS % (AUTO) 79 % (42-75); PLATELET COUNT 316 x10^3/uL (130-400); RED BLOOD COUNT 3.33 x10^6/uL (3.82-5.3); RED CELL DISTRIBUTION WIDTH 19.6 % (9.6-15.2)
[2017-08-24 09:05] LABS: ANION GAP 11 mmol/L (5-15); CALCIUM 7.4 mg/dL (8.5-10.1); CHLORIDE 107 mmol/L (98-107); CREATININE 1.07 mg/dL (0.55-1.02)
[2017-08-24] MEDS: ASCORBIC ACID 500 MG TABLET PO SCH (09:41)
[2017-08-24] MEDS: COLESTIPOL 1 GM TABLET PO SCH ×2 (09:41→20:24)
[2017-08-24] MEDS: BRIMONIDINE TARTRATE OPHTH 0.15%, 5ML EACHEYE SCH ×2 (09:41→20:22)
[2017-08-24] MEDS: PANTOPRAZOLE 40 MG IV IVPush SCH (09:41)
[2017-08-24 12:40] VITALS: BP 91/63
[2017-08-24] MEDS ORDERED: IRON DEXTRAN IV PER PHARMACY IV PRN (13:30)
[2017-08-24] MEDS ORDERED: EPINEPHRINE SYRINGE 0.1 MG/ML, 10ML ONE (13:52)
[2017-08-24] MEDS: metFORMIN 500 MG TABLET PO SCH ×2 (13:56→20:23)
[2017-08-24] MEDS ORDERED: IRON DEXTRAN COMPLEX 25 MG in SODIUM CHLORIDE 0.9% 50 ML IV ONE (14:00)
[2017-08-24] MEDS ORDERED: IRON DEXTRAN COMPLEX 1,400 MG in SODIUM CHLORIDE 0.9% 250 ML IV ONE (15:00)
[2017-08-24] MEDS: POLYETHYLENE GLYCOL 17 GM PACKET PO SCH (16:06)
[2017-08-24 20:00] VITALS: BP 113/81
[2017-08-24] MEDS: GABAPENTIN 300 MG CAPSULE PO SCH (20:23)
[2017-08-25 02:00] VITALS: BP 152/77
[2017-08-25] MEDS: CEFTRIAXONE PMX 1GM/50ML 50 ML IV SCH (03:53)
[2017-08-25 05:36] LABS: BASOPHILS # (AUTO) 0.03 x10^3/uL (0-0.1); BASOPHILS % (AUTO) 1 % (0-1); EOSINOPHILS # (AUTO) 0.29 x10^3/uL (0-0.4); EOSINOPHILS % (AUTO) 5 % (1-7); LYMPHOCYTES # (AUTO) 1.43 x10^3/uL (1-3.4); LYMPHOCYTES % (AUTO) 22 % (22-44); MD NO; MEAN CORPUSCULAR HEMOGLOBIN 26.9 pg (27.0-34.8); MEAN CORPUSCULAR HGB CONC 33.1 g/dL (32.4-35.8); MEAN CORPUSCULAR VOLUME 81.2 fL (80-100); MEAN PLATELET VOLUME 7.8 fL (7.4-10.4); MONOCYTES # (AUTO) 0.44 x10^3/uL (0.2-0.8); MONOCYTES % (AUTO) 7 % (2-9); NEUTROPHILS # (AUTO) 4.23 x10^3/uL (1.8-6.8); NEUTROPHILS % (AUTO) 66 % (42-75); PLATELET COUNT 245 x10^3/uL (130-400); RED BLOOD COUNT 3.09 x10^6/uL (3.82-5.3); RED CELL DISTRIBUTION WIDTH 19.4 % (9.6-15.2)
[2017-08-25 05:54] LABS: ANION GAP 12 mmol/L (5-15); CALCIUM 7.7 mg/dL (8.5-10.1); CHLORIDE 108 mmol/L (98-107)
[2017-08-25 05:58] LABS: CREATININE 0.87 mg/dL (0.55-1.02)
[2017-08-25] MEDS: [UNRECOGNIZED DRUG - OTHER] MC SCH (07:00)
[2017-08-25] MEDS: CLONIDINE MC SCH (07:00)
[2017-08-25] MEDS ORDERED: POTASSIUM CHLORIDE 20 MEQ PACKET PO ONE (07:30)
[2017-08-25 08:04] VITALS: BP 176/92
[2017-08-25] MEDS: INSULIN LISPRO 100 UNITS/ML, PEN SQ-INSULIN SCH (08:05)
[2017-08-25] MEDS: metFORMIN 500 MG TABLET PO SCH (08:05)
[2017-08-25] MEDS: COLESTIPOL 1 GM TABLET PO SCH (08:06)
[2017-08-25] MEDS: ASCORBIC ACID 500 MG TABLET PO SCH (08:06)
[2017-08-25] MEDS: BRIMONIDINE TARTRATE OPHTH 0.15%, 5ML EACHEYE SCH (08:07)
[2017-08-25] MEDS ORDERED: CEFD300C37 PO ×2 (08:17→08:28)
[2017-08-25] MEDS ORDERED: CALC625T13 PO (08:42)
[2017-08-25] MEDS ORDERED: FERROUS SULFATE 325 MG TABLET PO SCH (09:00)
[2017-08-25] MEDS ORDERED: CALCIUM POLYCARBOPHIL 625 MG TABLET PO SCH (09:00)
[2017-08-25] MEDS ORDERED: LISINOPRIL 5 MG TABLET PO SCH (09:00)
[2017-08-25] MEDS ORDERED: TRIAMTERENE-HCTZ 37.5/25 MG TABLET PO SCH (09:00)
[2017-08-25] MEDS ORDERED: GABAPENTIN 100 MG CAPSULE PO SCH (09:00)
[2017-08-25] MEDS: POLYETHYLENE GLYCOL 17 GM PACKET PO SCH (09:07)
[2017-08-25 09:10] VITALS: BP 115/73
[2017-08-25 14:06] VITALS: BP 129/78
== END 2017-08-25 18:38 | disposition home health service (06) | DRG 378 ==
LOC: ED 20:03 → EDIP 22:04 → 4WST 23:20
PROVIDERS: ADMIT Internal Medicine; ATTEND Internal Medicine
PROC: 0D758ZZ Dilation of Esophagus, Via Natural or Artificial Opening Endoscopic (ICD-10-PCS; 2017-08-23)
PROC: 0DJD8ZZ Inspection of Lower Intestinal Tract, Via Natural or Artificial Opening Endoscopic (ICD-10-PCS; 2017-08-23)
PROC: 0DB98ZX Excision of Duodenum, Via Natural or Artificial Opening Endoscopic, Diagnostic (ICD-10-PCS; principal; 2017-08-23 10:30)
DX: K92.2 Gastrointestinal hemorrhage, unspecified (principal); E44.0 Moderate protein-calorie malnutrition; N17.9 Acute kidney failure, unspecified; E87.2 Acidosis; E87.5 Hyperkalemia; K22.2 Esophageal obstruction; E11.51 Type 2 diabetes mellitus with diabetic peripheral angiopathy without gangrene; N12 Tubulo-interstitial nephritis, not specified as acute or chronic; D64.9 Anemia, unspecified; K59.00 Constipation, unspecified; K44.9 Diaphragmatic hernia without obstruction or gangrene; M54.30 Sciatica, unspecified side; K22.70 Barrett's esophagus without dysplasia; K80.20 Calculus of gallbladder without cholecystitis without obstruction; K74.60 Unspecified cirrhosis of liver; G89.29 Other chronic pain; M54.9 Dorsalgia, unspecified; K21.9 Gastro-esophageal reflux disease without esophagitis; I10 Essential (primary) hypertension; B96.20 Unspecified Escherichia coli [E. coli] as the cause of diseases classified elsewhere; Z90.710 Acquired absence of both cervix and uterus; Z79.84 Long term (current) use of oral hypoglycemic drugs; Z79.899 Other long term (current) drug therapy; Z85.3 Personal history of malignant neoplasm of breast; Z68.25 Body mass index [BMI] 25.0-25.9, adult
CPT/HCPCS: 36415; 74022; 74177; 80048; 80053; 81001; 82140; 82728; 82962; 83036; 83540; 83550; 83605; 83690; 84466; 84484; 85025; 85610; 85730; 87077; 87086; 87186; 88305; 93005; 96360; 96361; 96375; J0696; J1750; J2405; J2704; Q9967; C9113; J0360; J1200; J1815; J2930; J7030; J7050

== ENCOUNTER 2017-09-06 17:00 | Inpatient (IN) | payer MEDICARE, OTHER ==
[~2017-09-06] VITALS: Ht 162.6 cm; Wt 58.3 kg
[~2017-09-06 17:00] MED LIST changes: +CALC625T13 PO; +CEFD300C37 PO; +CLON0.1T PO; +COLE1TAB2 PO; +FERR324T5 PO; +GABA-827 PO; +LISI2.5T PO; +TRIA1TAB3 PO
[2017-09-06] MEDS ORDERED: SODIUM CHLORIDE FLUSH 10ML SYR IVF ONE (17:30)
[2017-09-06 17:49] LABS: INTERNATIONAL NORMALIZED RATIO 1.05 (0.93-1.1); PROTHROMBIN TIME 10.8 Seconds (9.6-11.5)
[2017-09-06 17:50] LABS: MEAN CORPUSCULAR HEMOGLOBIN 28.9 pg (27.0-34.8); MEAN CORPUSCULAR VOLUME 87.7 fL (80-100); MEAN PLATELET VOLUME 8.7 fL (7.4-10.4); PLATELET COUNT 267 x10^3/uL (130-400); RED BLOOD COUNT 3.97 x10^6/uL (3.82-5.3); RED CELL DISTRIBUTION WIDTH 25.5 % (9.6-15.2)
[2017-09-06 17:56] LABS: ALANINE AMINOTRANSFERASE 43 U/L (12-78); ALBUMIN 3.1 g/dL (3.4-5.0); ANION GAP 17 mmol/L (5-15); CALCIUM 8.8 mg/dL (8.5-10.1); CHLORIDE 95 mmol/L (98-107)
[2017-09-06 18:01] LABS: ALKALINE PHOSPHATASE 384 U/L (45-117); BILIRUBIN,TOTAL 0.5 mg/dL (0.2-1.0); CREATININE 1.43 mg/dL (0.55-1.02); TOTAL PROTEIN 7.6 g/dL (6.4-8.2); TROPONIN I < 0.015 ng/mL (0.000-0.045)
[2017-09-06 18:08] LABS: BASOPHILS # (AUTO) 0.06 x10^3/uL (0-0.1); BASOPHILS % (AUTO) 1 % (0-1); EOSINOPHILS # (AUTO) 0.19 x10^3/uL (0-0.4); EOSINOPHILS % (AUTO) 2 % (1-7); LYMPHOCYTES # (AUTO) 0.85 x10^3/uL (1-3.4); LYMPHOCYTES % (AUTO) 9 % (22-44); MD MORPH REVIEW ONLY; MONOCYTES # (AUTO) 0.92 x10^3/uL (0.2-0.8); MONOCYTES % (AUTO) 10 % (2-9); NEUTROPHILS # (AUTO) 7.44 x10^3/uL (1.8-6.8); NEUTROPHILS % (AUTO) 79 % (42-75)
[2017-09-06 18:09] LABS: ANISOCYTOSIS 1+; POLYCHROMASIA 1+
[2017-09-06 18:10] LABS: <PLATELET ESTIMATE> ADEQUATE; <PLT MORPHOLOGY> NORMAL PLT MORPH
[2017-09-06] MEDS ORDERED: TRIA1TAB5 PO (18:29)
[2017-09-06] MEDS ORDERED: GABA100C PO (18:29)
[2017-09-06] MEDS ORDERED: DOCU-180 PO (18:29)
[2017-09-06] MEDS ORDERED: COLE1TAB2 PO (18:29)
[2017-09-06] MEDS ORDERED: LISI-170 PO (18:29)
[2017-09-06] MEDS ORDERED: iron PO (18:29)
[2017-09-06] MEDS ORDERED: SODIUM CHLORIDE 0.9% 1,000ML IVBOLUS ONE (18:30)
[2017-09-06 19:14] LABS: CULTURE INDICATED? YES; MICROSCOPIC INDICATED
[2017-09-06] MEDS ORDERED: CEFTRIAXONE PMX 1GM/50ML 50 ML IVPB ONE (19:30)
[2017-09-06] MEDS ORDERED: CEFTRIAXONE PMX 1GM/50ML 50 ML ONE (20:04)
[2017-09-06] MEDS ORDERED: ACETAMINOPHEN 325 MG TABLET PO PRN (20:30)
[2017-09-06] MEDS ORDERED: hydrALAzine 20 MG/ML, 1ML IVPush PRN (20:30)
[2017-09-06] MEDS ORDERED: ENOXAPARIN 40 MG/0.4 ML SQ SCH (20:30)
[2017-09-06] MEDS ORDERED: ONDANSETRON ODT 4 MG PO PRN (20:30)
[2017-09-06] MEDS ORDERED: DOCUSATE 100 MG CAPSULE PO PRN (20:30)
[2017-09-06] MEDS ORDERED: GABAPENTIN 300 MG CAPSULE PO SCH (21:00)
[2017-09-06] MEDS: (Brimonidine Tartrate** (Alphagan P**) 1 DROP(S)) EACHEYE SCH (21:00)
[2017-09-06] MEDS: BRIMONIDINE MC SCH (22:00)
[2017-09-06] MEDS: SODIUM CHLORIDE 0.9% 1,000 ML IV SCH (22:27)
[2017-09-06] MEDS: LISINOPRIL 20 MG TABLET PO SCH (22:28)
[2017-09-06] MEDS: INSULIN LISPRO 100 UNITS/ML, PEN SQ-INSULIN SCH (23:08)
[2017-09-07 02:26] VITALS: BP 115/60
[2017-09-07] MEDS: BRIMONIDINE MC SCH ×2 (04:21→14:00)
[2017-09-07 07:17] VITALS: BP 101/65
[2017-09-07] MEDS: FERROUS SULFATE 325 MG TABLET PO SCH (08:42)
[2017-09-07] MEDS: CALCIUM POLYCARBOPHIL 625 MG TABLET PO SCH (08:42)
[2017-09-07] MEDS: INSULIN LISPRO 100 UNITS/ML, PEN SQ-INSULIN SCH ×4 (08:42→22:38)
[2017-09-07] MEDS: ASCORBIC ACID 500 MG TABLET PO SCH (08:42)
[2017-09-07] MEDS: OMEPRAZOLE 20 MG CAPSULE.DR PO SCH (08:42)
[2017-09-07] MEDS: LISINOPRIL 20 MG TABLET PO SCH (09:00)
[2017-09-07] MEDS ORDERED: GABAPENTIN 100 MG CAPSULE PO SCH (09:00)
[2017-09-07] MEDS ORDERED: TRIAMTERENE/HCTZ 75/50MG TABLET PO SCH (09:00)
[2017-09-07] MEDS: (Brimonidine Tartrate** (Alphagan P**) 1 DROP(S)) EACHEYE SCH (09:00)
[2017-09-07] MEDS ORDERED: MAGNESIUM CITRATE 300ML ORAL SOL PO PRN (10:00)
[2017-09-07] MEDS ORDERED: POLYETHYLENE GLYCOL 17 GM PACKET PO ONE (10:00)
[2017-09-07] MEDS: SODIUM CHLORIDE 0.9% 1,000 ML IV SCH ×3 (10:48→20:07)
[2017-09-07 12:09] VITALS: BP 99/62
[2017-09-07] MEDS ORDERED: PIPERACILLIN/TAZO/PMX 4.5GM 100 ML IV SCH (12:30)
[2017-09-07] MEDS: PIPERACILLIN/TAZO/PMX 2.25GM 50 ML IVPB SCH ×2 (14:26→21:56)
[2017-09-07 18:50] VITALS: BP 138/70
[2017-09-07] MEDS ORDERED: CEFTRIAXONE PMX 1GM/50ML 50 ML IV SCH (20:30)
[2017-09-07] MEDS: BRIMONIDINE TARTRATE OPHTH 0.15%, 5ML OP SCH (21:00)
[2017-09-07] MEDS ORDERED: ENOXAPARIN 30 MG/0.3 ML SQ SCH (22:00)
[2017-09-08 01:36] VITALS: BP 96/54
[2017-09-08] MEDS: PIPERACILLIN/TAZO/PMX 2.25GM 50 ML IVPB SCH ×4 (03:44→22:57)
[2017-09-08] MEDS: SODIUM CHLORIDE 0.9% 1,000 ML IV SCH ×2 (04:19→11:58)
[2017-09-08 05:21] LABS: MEAN CORPUSCULAR HEMOGLOBIN 28.9 pg (27.0-34.8); MEAN CORPUSCULAR HGB CONC 32.9 g/dL (32.4-35.8); MEAN CORPUSCULAR VOLUME 87.9 fL (80-100); MEAN PLATELET VOLUME 8.4 fL (7.4-10.4); PLATELET COUNT 185 x10^3/uL (130-400); RED BLOOD COUNT 3.21 x10^6/uL (3.82-5.3); RED CELL DISTRIBUTION WIDTH 25.2 % (9.6-15.2)
[2017-09-08 05:30] LABS: ALANINE AMINOTRANSFERASE 36 U/L (12-78); ALBUMIN 2.2 g/dL (3.4-5.0); ANION GAP 10 mmol/L (5-15); CHLORIDE 107 mmol/L (98-107); CREATININE 0.92 mg/dL (0.55-1.02)
[2017-09-08 05:32] LABS: ALKALINE PHOSPHATASE 276 U/L (45-117); BILIRUBIN,TOTAL 0.6 mg/dL (0.2-1.0); TOTAL PROTEIN 5.5 g/dL (6.4-8.2)
[2017-09-08 05:48] LABS: BASOPHILS # (AUTO) 0.05 x10^3/uL (0-0.1); BASOPHILS % (AUTO) 1 % (0-1); EOSINOPHILS # (AUTO) 0.24 x10^3/uL (0-0.4); EOSINOPHILS % (AUTO) 5 % (1-7); LYMPHOCYTES % (AUTO) 20 % (22-44); MD SCAN; MONOCYTES # (AUTO) 0.48 x10^3/uL (0.2-0.8); MONOCYTES % (AUTO) 11 % (2-9); NEUTROPHILS # (AUTO) 2.84 x10^3/uL (1.8-6.8); NEUTROPHILS % (AUTO) 63 % (42-75)
[2017-09-08] MEDS: INSULIN LISPRO 100 UNITS/ML, PEN SQ-INSULIN SCH ×4 (07:00→21:00)
[2017-09-08] MEDS: OMEPRAZOLE 20 MG CAPSULE.DR PO SCH (07:30)
[2017-09-08 08:04] VITALS: BP 135/74
[2017-09-08] MEDS: BRIMONIDINE TARTRATE OPHTH 0.15%, 5ML OP SCH ×2 (08:58→21:00)
[2017-09-08] MEDS: ASCORBIC ACID 500 MG TABLET PO SCH (09:00)
[2017-09-08] MEDS: CALCIUM POLYCARBOPHIL 625 MG TABLET PO SCH (09:00)
[2017-09-08] MEDS: FERROUS SULFATE 325 MG TABLET PO SCH (09:00)
[2017-09-08 10:21] LABS: CHLORIDE,URINE RANDOM 104 mmol/L; POTASSIUM,URINE RANDOM 18 mmol/L; SODIUM,URINE RANDOM 97 mmol/L
[2017-09-08 10:24] LABS: OSMOLALITY,URINE 322 mOsm/kg (500-850)
[2017-09-08 14:46] VITALS: BP_SYST 126; BP_SYST 134; BP_DIAS 73; BP_DIAS 74
[2017-09-08 19:55] VITALS: BP 133/72
[2017-09-08] MEDS ORDERED: ENOXAPARIN 40 MG/0.4 ML SQ SCH (22:00)
[2017-09-08] MEDS ORDERED: BRIMONIDINE TARTRATE OPHTH 0.15%, 5ML OP SCH (22:44)
[2017-09-09 01:15] VITALS: BP 115/61
[2017-09-09] MEDS: PIPERACILLIN/TAZO/PMX 2.25GM 50 ML IVPB SCH ×2 (04:03→10:36)
[2017-09-09] MEDS: INSULIN LISPRO 100 UNITS/ML, PEN SQ-INSULIN SCH ×2 (07:00→11:00)
[2017-09-09 07:31] VITALS: BP 144/67
[2017-09-09] MEDS: CALCIUM POLYCARBOPHIL 625 MG TABLET PO SCH (07:53)
[2017-09-09] MEDS: FERROUS SULFATE 325 MG TABLET PO SCH (07:53)
[2017-09-09] MEDS: ASCORBIC ACID 500 MG TABLET PO SCH (07:53)
[2017-09-09] MEDS: OMEPRAZOLE 20 MG CAPSULE.DR PO SCH (07:53)
[2017-09-09] MEDS ORDERED: ANASTROZOLE 1 MG TABLET PO SCH (09:00)
[2017-09-09] MEDS ORDERED: MAGNESIUM SULFATE PMX 4GM/100M 100 ML IV ONE (11:00)
[2017-09-09 12:47] VITALS: BP 116/66
== END 2017-09-09 13:48 | disposition home or self-care (01) | DRG 682 ==
LOC: ED 18:37 → EDIP 20:26 → 4NOR 21:15
PROVIDERS: ADMIT Hospitalist; ATTEND Hospitalist
DX: N17.0 Acute kidney failure with tubular necrosis (principal); G93.41 Metabolic encephalopathy; E87.2 Acidosis; E11.39 Type 2 diabetes mellitus with other diabetic ophthalmic complication; E11.40 Type 2 diabetes mellitus with diabetic neuropathy, unspecified; I50.32 Chronic diastolic (congestive) heart failure; E87.1 Hypo-osmolality and hyponatremia; N30.00 Acute cystitis without hematuria; W18.39XA Other fall on same level, initial encounter; B96.5 Pseudomonas (aeruginosa) (mallei) (pseudomallei) as the cause of diseases classified elsewhere; D64.9 Anemia, unspecified; H40.9 Unspecified glaucoma; E11.51 Type 2 diabetes mellitus with diabetic peripheral angiopathy without gangrene; E86.0 Dehydration; E11.65 Type 2 diabetes mellitus with hyperglycemia; F03.90 Unspecified dementia, unspecified severity, without behavioral disturbance, psychotic disturbance, mood disturbance, and anxiety; I11.0 Hypertensive heart disease with heart failure; H92.02 Otalgia, left ear; M54.9 Dorsalgia, unspecified; G89.29 Other chronic pain; K21.0 Gastro-esophageal reflux disease with esophagitis; K22.70 Barrett's esophagus without dysplasia; Z90.12 Acquired absence of left breast and nipple; Z90.710 Acquired absence of both cervix and uterus; Z88.2 Allergy status to sulfonamides; Z91.041 Radiographic dye allergy status; Z85.3 Personal history of malignant neoplasm of breast; Y93.89 Activity, other specified; Y92.89 Other specified places as the place of occurrence of the external cause; Y99.8 Other external cause status
CPT/HCPCS: 36415; 70450; 71045; 76700; 80053; 80074; 81001; 82140; 82436; 82962; 83735; 83930; 83935; 84133; 84300; 84484; 85025; 85610; 87077; 87086; 87186; 87521; 93005; 93306; 96360; J0696; J1650; J2543; J1815; J3475; J7030

== ENCOUNTER → 2017-10-13 | Outpatient (CLI) | payer MEDICARE, OTHER ==
[~2017-10-13] MED LIST changes: +DOCU-180 PO; +GABA100C PO; +LISI-170 PO; +TRIA1TAB5 PO; +iron PO
== END | disposition home or self-care (01) ==
LOC: RAD 16:43
PROVIDERS: ATTEND Family Medicine
DX: M47.894 Other spondylosis, thoracic region (principal); M41.85 Other forms of scoliosis, thoracolumbar region; J18.9 Pneumonia, unspecified organism; I51.7 Cardiomegaly
CPT/HCPCS: 71045; 72072

== ENCOUNTER → 2017-11-11 | Outpatient (CLI) | payer MEDICARE, OTHER ==
[2017-11-11 16:14] LABS: BASOPHILS # (AUTO) 0.03 x10^3/uL (0-0.1); BASOPHILS % (AUTO) 0 % (0-1); EOSINOPHILS # (AUTO) 0.59 x10^3/uL (0-0.4); EOSINOPHILS % (AUTO) 8 % (1-7); LYMPHOCYTES # (AUTO) 0.59 x10^3/uL (1-3.4); LYMPHOCYTES % (AUTO) 8 % (22-44); MD NO; MEAN CORPUSCULAR HEMOGLOBIN 32.4 pg (27.0-34.8); MEAN CORPUSCULAR HGB CONC 34.2 g/dL (32.4-35.8); MEAN CORPUSCULAR VOLUME 94.9 fL (80-100); MEAN PLATELET VOLUME 8.3 fL (7.4-10.4); MONOCYTES # (AUTO) 0.58 x10^3/uL (0.2-0.8); MONOCYTES % (AUTO) 8 % (2-9); NEUTROPHILS # (AUTO) 5.36 x10^3/uL (1.8-6.8); NEUTROPHILS % (AUTO) 75 % (42-75); PLATELET COUNT 240 x10^3/uL (130-400); RED BLOOD COUNT 3.36 x10^6/uL (3.82-5.3); RED CELL DISTRIBUTION WIDTH 16.4 % (9.6-15.2)
[2017-11-11 16:26] LABS: ALBUMIN 3.2 g/dL (3.4-5.0); ANION GAP 13 mmol/L (5-15); CALCIUM 8.9 mg/dL (8.5-10.1); CHLORIDE 100 mmol/L (98-107); CREATININE 0.83 mg/dL (0.55-1.02)
[2017-11-11 16:31] LABS: ALANINE AMINOTRANSFERASE 81 U/L (12-78); ALKALINE PHOSPHATASE 451 U/L (45-117); BILIRUBIN,TOTAL 0.5 mg/dL (0.2-1.0)
[2017-11-11 17:30] LABS: HCT (SEDRATE) 37.6 % (34.6-47.8)
== END ==
LOC: LAB 15:36
PROVIDERS: ATTEND Family Medicine
DX: J98.11 Atelectasis (principal); R91.8 Other nonspecific abnormal finding of lung field; I77.6 Arteritis, unspecified; K74.69 Other cirrhosis of liver
CPT/HCPCS: 36415; 71046; 80053; 83516; 85025; 85651; 86038; 86160; 86225; 86235; 86255; 86256; 86376; 86431

== ENCOUNTER 2018-02-15 11:47 | Inpatient (IN) | payer MEDICARE, OTHER ==
[~2018-02-15] VITALS: Ht 160 cm; Wt 59.1 kg
[~2018-02-15 11:47] MED LIST changes: -AMLO5TAB2 PO; +AMLO5TAB7 PO; -LOSA100T6 PO; +LOSA100T7 PO; +METF500T17 PO; -METF500T4 PO
[2018-02-15] MEDS ORDERED: SODIUM CHLORIDE 0.9% 1,000ML IVBOLUS ONE (12:30)
[2018-02-15] MEDS ORDERED: ONDANSETRON ODT 4 MG PO ONE (12:30)
[2018-02-15 12:50] LABS: BASOPHILS # (AUTO) 0.01 x10^3/uL (0-0.1); BASOPHILS % (AUTO) 0 % (0-1); EOSINOPHILS # (AUTO) 0.01 x10^3/uL (0-0.4); EOSINOPHILS % (AUTO) 0 % (1-7); LYMPHOCYTES # (AUTO) 0.46 x10^3/uL (1-3.4); LYMPHOCYTES % (AUTO) 4 % (22-44); MD NO; MEAN CORPUSCULAR HEMOGLOBIN 29.6 pg (27.0-34.8); MEAN CORPUSCULAR HGB CONC 34.1 g/dL (32.4-35.8); MEAN CORPUSCULAR VOLUME 86.9 fL (80-100); MEAN PLATELET VOLUME 7.8 fL (7.4-10.4); MONOCYTES # (AUTO) 0.44 x10^3/uL (0.2-0.8); MONOCYTES % (AUTO) 4 % (2-9); NEUTROPHILS # (AUTO) 10.85 x10^3/uL (1.8-6.8); NEUTROPHILS % (AUTO) 92 % (42-75); PLATELET COUNT 280 x10^3/uL (130-400); RED BLOOD COUNT 4.21 x10^6/uL (3.82-5.3)
[2018-02-15 13:02] LABS: ALANINE AMINOTRANSFERASE 49 U/L (12-78); ALBUMIN 3.5 g/dL (3.4-5.0); ANION GAP 11 mmol/L (5-15); CALCIUM 9.2 mg/dL (8.5-10.1); CHLORIDE 95 mmol/L (98-107); CREATININE 0.79 mg/dL (0.55-1.02)
[2018-02-15 13:07] LABS: ALKALINE PHOSPHATASE 402 U/L (45-117); BILIRUBIN,TOTAL 0.8 mg/dL (0.2-1.0); TOTAL PROTEIN 7.4 g/dL (6.4-8.2); TROPONIN I < 0.015 ng/mL (0.000-0.045)
[2018-02-15 13:21] LABS: MICROSCOPIC AUTO
[2018-02-15 13:21] LABS: INTERNATIONAL NORMALIZED RATIO 1.11 (0.93-1.1); PROTHROMBIN TIME 11.5 Seconds (9.6-11.5)
[2018-02-15 13:22] LABS: CULTURE INDICATED? YES
[2018-02-15] MEDS ORDERED: CEFTRIAXONE PMX 1GM/50ML 50 ML IV ONE (14:00)
[2018-02-15] MEDS ORDERED: hydrALAzine 20 MG/ML, 1ML IV ONE (14:00)
[2018-02-15] MEDS ORDERED: ONDANSETRON ODT 4 MG ONE (14:06)
[2018-02-15] MEDS ORDERED: CEFTRIAXONE PMX 1GM/50ML 50 ML ONE (14:06)
[2018-02-15] MEDS ORDERED: hydrALAzine 20 MG/ML, 1ML ONE (14:08)
[2018-02-15 15:52] VITALS: BP 169/80
[2018-02-15] MEDS ORDERED: ENALAPRILAT 1.25 MG/ML, 2ML IV PRN (16:00)
[2018-02-15] MEDS ORDERED: DEXTROSE 50%, 50ML SYRINGE IVPush PRN (16:00)
[2018-02-15] MEDS ORDERED: DEXTROSE 4 GM TAB.CHEW PO PRN (16:00)
[2018-02-15] MEDS ORDERED: LABETALOL 5MG/ML, 20ML IVPush PRN (16:00)
[2018-02-15] MEDS ORDERED: hydrALAzine 20 MG/ML, 1ML IV PRN (16:00)
[2018-02-15] MEDS ORDERED: HYDROcodone/APAP 5/325 TABLET PO PRN (16:00)
[2018-02-15] MEDS ORDERED: POLYETHYLENE GLYCOL 17 GM PACKET PO PRN (16:00)
[2018-02-15] MEDS ORDERED: morphine SULFATE 10 MG/ML, 1ML IVPush PRN (16:00)
[2018-02-15] MEDS ORDERED: ONDANSETRON 2MG/ML, 2ML IVPush PRN (16:00)
[2018-02-15] MEDS ORDERED: DOCUSATE 100 MG CAPSULE PO PRN (16:00)
[2018-02-15] MEDS ORDERED: ACETAMINOPHEN 325 MG TABLET PO PRN (16:00)
[2018-02-15] MEDS ORDERED: GLUCAGON 1 MG IM PRN (16:00)
[2018-02-15] MEDS: NS + 20MEQ KCL 1,000 ML IV SCH (17:32)
[2018-02-15] MEDS: ENOXAPARIN 40 MG/0.4 ML SQ SCH (17:33)
[2018-02-15] MEDS: PIPERACILLIN/TAZO/PMX 3.375GM 50 ML IV SCH (17:33)
[2018-02-15] MEDS: IBUPROFEN 600 MG TABLET PO PRN (18:20)
[2018-02-15 19:05] VITALS: BP 104/65
[2018-02-15] MEDS: INSULIN LISPRO 100 UNITS/ML, PEN SQ-INSULIN SCH ×2 (20:32→20:36)
[2018-02-15] MEDS: COLESTIPOL 1 GM TABLET PO SCH (20:32)
[2018-02-15] MEDS: LISINOPRIL 20 MG TABLET PO SCH (20:32)
[2018-02-15] MEDS: FAMOTIDINE 20 MG TABLET PO SCH (20:32)
[2018-02-15] MEDS: TEMPLATE NON-FORMULARY MED. (Brimonidine Tartrate** (Alphagan P**) 1 DROP(S)) EACHEYE SCH (20:33)
[2018-02-15] MEDS: SODIUM CHLORIDE FLUSH 10ML SYR IVF SCH (20:34)
[2018-02-16] VITALS (7 sets, daily range): BP systolic 135–189; BP diastolic 68–88
[2018-02-16] MEDS: PIPERACILLIN/TAZO/PMX 3.375GM 50 ML IV SCH ×4 (00:39→18:37)
[2018-02-16] MEDS: NS + 20MEQ KCL 1,000 ML IV SCH (00:39)
[2018-02-16 05:46] LABS: ANION GAP 8 mmol/L (5-15); CALCIUM 7.8 mg/dL (8.5-10.1); CHLORIDE 104 mmol/L (98-107)
[2018-02-16 05:47] LABS: BASOPHILS # (AUTO) 0.03 x10^3/uL (0-0.1); BASOPHILS % (AUTO) 1 % (0-1); EOSINOPHILS # (AUTO) 0.35 x10^3/uL (0-0.4); EOSINOPHILS % (AUTO) 6 % (1-7); LYMPHOCYTES # (AUTO) 1.08 x10^3/uL (1-3.4); LYMPHOCYTES % (AUTO) 17 % (22-44); MD NO; MEAN CORPUSCULAR HEMOGLOBIN 29.5 pg (27.0-34.8); MEAN CORPUSCULAR HGB CONC 33.8 g/dL (32.4-35.8); MEAN CORPUSCULAR VOLUME 87.2 fL (80-100); MEAN PLATELET VOLUME 7.7 fL (7.4-10.4); MONOCYTES # (AUTO) 0.56 x10^3/uL (0.2-0.8); MONOCYTES % (AUTO) 9 % (2-9); NEUTROPHILS # (AUTO) 4.24 x10^3/uL (1.8-6.8); NEUTROPHILS % (AUTO) 68 % (42-75); PLATELET COUNT 245 x10^3/uL (130-400); RED BLOOD COUNT 3.61 x10^6/uL (3.82-5.3); RED CELL DISTRIBUTION WIDTH 15.6 % (9.6-15.2)
[2018-02-16] MEDS: IBUPROFEN 600 MG TABLET PO PRN (05:48)
[2018-02-16] MEDS: FERROUS SULFATE 325 MG TABLET PO SCH (08:16)
[2018-02-16] MEDS: COLESTIPOL 1 GM TABLET PO SCH ×2 (08:16→20:21)
[2018-02-16] MEDS: SENNA/DOCUSATE TABLET PO SCH (08:16)
[2018-02-16] MEDS: LISINOPRIL 20 MG TABLET PO SCH ×2 (08:16→20:22)
[2018-02-16] MEDS: FAMOTIDINE 20 MG TABLET PO SCH ×2 (08:16→20:21)
[2018-02-16] MEDS: SODIUM CHLORIDE FLUSH 10ML SYR IVF SCH ×2 (08:17→20:22)
[2018-02-16] MEDS: TEMPLATE NON-FORMULARY MED. (Brimonidine Tartrate** (Alphagan P**) 1 DROP(S)) EACHEYE SCH (09:26)
[2018-02-16] MEDS: INSULIN LISPRO 100 UNITS/ML, PEN SQ-INSULIN SCH ×4 (09:26→20:21)
[2018-02-16] MEDS ORDERED: ESCI10TA PO (10:23)
[2018-02-16] MEDS ORDERED: LATA2.5D2 EACHEYE (10:23)
[2018-02-16] MEDS ORDERED: MIRA50TA PO (10:23)
[2018-02-16] MEDS ORDERED: IRBE300T16 PO (10:23)
[2018-02-16] MEDS ORDERED: GABA100C PO ×3 (10:23)
[2018-02-16] MEDS ORDERED: HYDR12.58 PO (10:23)
[2018-02-16] MEDS ORDERED: CHLO25TA PO (10:23)
[2018-02-16] MEDS ORDERED: MAGNESIUM SULFATE PMX 2GM/50ML 50 ML IV ONE (13:00)
[2018-02-16] MEDS: ENOXAPARIN 40 MG/0.4 ML SQ SCH (16:40)
[2018-02-16] MEDS: BRIMONIDINE TARTRATE 0.15% EACHEYE SCH (20:22)
[2018-02-17] MEDS: PIPERACILLIN/TAZO/PMX 3.375GM 50 ML IV SCH ×3 (00:29→12:16)
[2018-02-17 00:40] VITALS: BP 115/72
[2018-02-17 05:37] LABS: CALCIUM 8.3 mg/dL (8.5-10.1); CHLORIDE 102 mmol/L (98-107)
[2018-02-17 05:41] LABS: ANION GAP 11 mmol/L (5-15); CREATININE 0.73 mg/dL (0.55-1.02)
[2018-02-17 07:10] VITALS: BP 184/81
[2018-02-17 08:56] VITALS: BP 175/78
[2018-02-17] MEDS ORDERED: POTASSIUM CHLORIDE 20 MEQ TAB.ER.PRT PO ONE (09:30)
[2018-02-17] MEDS: INSULIN LISPRO 100 UNITS/ML, PEN SQ-INSULIN SCH ×4 (10:11→19:52)
[2018-02-17] MEDS: COLESTIPOL 1 GM TABLET PO SCH ×2 (10:14→19:50)
[2018-02-17] MEDS: FAMOTIDINE 20 MG TABLET PO SCH ×2 (10:15→19:50)
[2018-02-17] MEDS: FERROUS SULFATE 325 MG TABLET PO SCH (10:15)
[2018-02-17] MEDS: SENNA/DOCUSATE TABLET PO SCH (10:15)
[2018-02-17] MEDS: BRIMONIDINE TARTRATE 0.15% EACHEYE SCH ×2 (10:21→20:00)
[2018-02-17] MEDS: SODIUM CHLORIDE FLUSH 10ML SYR IVF SCH ×2 (10:21→20:00)
[2018-02-17 13:04] VITALS: BP 157/74
[2018-02-17] MEDS: ENOXAPARIN 40 MG/0.4 ML SQ SCH (17:01)
[2018-02-17] MEDS: CEFTRIAXONE 1,000 MG in SODIUM CHLORIDE 0.9% 50 ML IV SCH (18:45)
[2018-02-17] MEDS: GABAPENTIN 100 MG CAPSULE PO SCH ×2 (19:51→20:01)
[2018-02-17 20:25] VITALS: BP 172/99
[2018-02-18 02:04] VITALS: BP 121/74
[2018-02-18 07:23] VITALS: BP_SYST 182; BP_SYST 203; BP_DIAS 78; BP_DIAS 90
[2018-02-18 08:34] VITALS: BP_SYST 158; BP_SYST 192; BP_DIAS 68; BP_DIAS 80
[2018-02-18 08:34] LABS: HEMOGLOBIN A1C 7.4 % (4.2-6.3)
[2018-02-18] MEDS: FAMOTIDINE 20 MG TABLET PO SCH ×2 (08:53→21:25)
[2018-02-18] MEDS: SENNA/DOCUSATE TABLET PO SCH (08:53)
[2018-02-18] MEDS: IRBESARTAN 300 MG TABLET PO SCH (08:54)
[2018-02-18] MEDS: COLESTIPOL 1 GM TABLET PO SCH ×2 (08:54→21:25)
[2018-02-18] MEDS: FERROUS SULFATE 325 MG TABLET PO SCH (08:54)
[2018-02-18] MEDS: CHLORTHALIDONE 25 MG TABLET PO SCH (08:55)
[2018-02-18] MEDS: BRIMONIDINE TARTRATE 0.15% EACHEYE SCH ×2 (08:55→21:26)
[2018-02-18] MEDS: SODIUM CHLORIDE FLUSH 10ML SYR IVF SCH ×2 (08:57→21:26)
[2018-02-18] MEDS: INSULIN LISPRO 100 UNITS/ML, PEN SQ-INSULIN SCH ×4 (09:00→21:25)
[2018-02-18] MEDS: GABAPENTIN 100 MG CAPSULE PO SCH ×3 (09:03→21:25)
[2018-02-18 16:00] VITALS: BP 135/63
[2018-02-18] MEDS: CEFTRIAXONE 1,000 MG in SODIUM CHLORIDE 0.9% 50 ML IV SCH (16:50)
[2018-02-18] MEDS: INSULIN GLARGINE 100 UNITS/ML, PEN SQ-INSULIN SCH (17:50)
[2018-02-18] MEDS: ENOXAPARIN 40 MG/0.4 ML SQ SCH (17:50)
[2018-02-18 20:33] VITALS: BP_SYST 217; BP_SYST 224; BP_DIAS 78; BP_DIAS 85
[2018-02-19 00:44] VITALS: BP_SYST 128; BP_SYST 98; BP_DIAS 60; BP_DIAS 67
[2018-02-19 05:21] LABS: BASOPHILS # (AUTO) 0.04 x10^3/uL (0-0.1); BASOPHILS % (AUTO) 1 % (0-1); EOSINOPHILS # (AUTO) 0.35 x10^3/uL (0-0.4); EOSINOPHILS % (AUTO) 6 % (1-7); LYMPHOCYTES # (AUTO) 1.47 x10^3/uL (1-3.4); LYMPHOCYTES % (AUTO) 27 % (22-44); MD NO; MEAN CORPUSCULAR HEMOGLOBIN 29.5 pg (27.0-34.8); MEAN CORPUSCULAR HGB CONC 33.5 g/dL (32.4-35.8); MEAN CORPUSCULAR VOLUME 88.1 fL (80-100); MEAN PLATELET VOLUME 7.9 fL (7.4-10.4); MONOCYTES # (AUTO) 0.55 x10^3/uL (0.2-0.8); MONOCYTES % (AUTO) 10 % (2-9); NEUTROPHILS # (AUTO) 3.05 x10^3/uL (1.8-6.8); NEUTROPHILS % (AUTO) 56 % (42-75); PLATELET COUNT 253 x10^3/uL (130-400); RED CELL DISTRIBUTION WIDTH 15.4 % (9.6-15.2)
[2018-02-19 05:27] LABS: CHLORIDE 104 mmol/L (98-107)
[2018-02-19 05:31] LABS: ALBUMIN 2.6 g/dL (3.4-5.0); ANION GAP 6 mmol/L (5-15); CALCIUM 8.4 mg/dL (8.5-10.1); CREATININE 0.72 mg/dL (0.55-1.02)
[2018-02-19] MEDS: INSULIN LISPRO 100 UNITS/ML, PEN SQ-INSULIN SCH ×4 (08:20→20:34)
[2018-02-19] MEDS: BRIMONIDINE TARTRATE 0.15% EACHEYE SCH ×2 (08:20→20:31)
[2018-02-19] MEDS: GABAPENTIN 100 MG CAPSULE PO SCH ×3 (08:21→20:37)
[2018-02-19] MEDS: SODIUM CHLORIDE FLUSH 10ML SYR IVF SCH ×2 (08:21→20:37)
[2018-02-19] MEDS: FAMOTIDINE 20 MG TABLET PO SCH ×2 (08:21→20:31)
[2018-02-19] MEDS: COLESTIPOL 1 GM TABLET PO SCH ×2 (08:21→20:31)
[2018-02-19] MEDS: IRBESARTAN 300 MG TABLET PO SCH (08:21)
[2018-02-19] MEDS: CHLORTHALIDONE 25 MG TABLET PO SCH (08:22)
[2018-02-19] MEDS: FERROUS SULFATE 325 MG TABLET PO SCH (08:22)
[2018-02-19] MEDS: SENNA/DOCUSATE TABLET PO SCH (08:22)
[2018-02-19] MEDS: INSULIN GLARGINE 100 UNITS/ML, PEN SQ-INSULIN SCH (08:23)
[2018-02-19 08:26] VITALS: BP 197/66
[2018-02-19 15:40] VITALS: BP 150/65
[2018-02-19] MEDS: ENOXAPARIN 40 MG/0.4 ML SQ SCH (16:33)
[2018-02-19] MEDS: CEFTRIAXONE 1,000 MG in SODIUM CHLORIDE 0.9% 50 ML IV SCH ×2 (17:48→19:09)
[2018-02-19 20:33] VITALS: BP 203/64
[2018-02-20 01:06] VITALS: BP 145/68
[2018-02-20 05:53] LABS: BASOPHILS # (AUTO) 0.04 x10^3/uL (0-0.1); BASOPHILS % (AUTO) 1 % (0-1); EOSINOPHILS # (AUTO) 0.42 x10^3/uL (0-0.4); EOSINOPHILS % (AUTO) 7 % (1-7); LYMPHOCYTES # (AUTO) 1.41 x10^3/uL (1-3.4); LYMPHOCYTES % (AUTO) 23 % (22-44); MD NO; MEAN CORPUSCULAR HEMOGLOBIN 30.4 pg (27.0-34.8); MEAN CORPUSCULAR HGB CONC 34.3 g/dL (32.4-35.8); MEAN CORPUSCULAR VOLUME 88.6 fL (80-100); MEAN PLATELET VOLUME 8.2 fL (7.4-10.4); MONOCYTES # (AUTO) 0.59 x10^3/uL (0.2-0.8); MONOCYTES % (AUTO) 10 % (2-9); NEUTROPHILS # (AUTO) 3.56 x10^3/uL (1.8-6.8); NEUTROPHILS % (AUTO) 59 % (42-75); PLATELET COUNT 254 x10^3/uL (130-400); RED BLOOD COUNT 3.61 x10^6/uL (3.82-5.3); RED CELL DISTRIBUTION WIDTH 15.4 % (9.6-15.2)
[2018-02-20 06:06] LABS: ALBUMIN 2.7 g/dL (3.4-5.0); ANION GAP 10 mmol/L (5-15); CALCIUM 8.6 mg/dL (8.5-10.1); CHLORIDE 101 mmol/L (98-107); CREATININE 0.78 mg/dL (0.55-1.02)
[2018-02-20 06:56] VITALS: BP 168/53
[2018-02-20] MEDS ORDERED: CEFTRIAXONE 1,000 MG in SODIUM CHLORIDE 0.9% 50 ML IV SCH (07:30)
[2018-02-20] MEDS: BRIMONIDINE TARTRATE 0.15% EACHEYE SCH (09:00)
[2018-02-20] MEDS: INSULIN LISPRO 100 UNITS/ML, PEN SQ-INSULIN SCH ×2 (09:36→11:33)
[2018-02-20] MEDS: INSULIN GLARGINE 100 UNITS/ML, PEN SQ-INSULIN SCH (09:36)
[2018-02-20] MEDS: CHLORTHALIDONE 25 MG TABLET PO SCH (09:37)
[2018-02-20] MEDS: FAMOTIDINE 20 MG TABLET PO SCH (09:37)
[2018-02-20] MEDS: FERROUS SULFATE 325 MG TABLET PO SCH (09:37)
[2018-02-20] MEDS: SENNA/DOCUSATE TABLET PO SCH (09:37)
[2018-02-20] MEDS: COLESTIPOL 1 GM TABLET PO SCH (09:37)
[2018-02-20] MEDS: GABAPENTIN 100 MG CAPSULE PO SCH (09:37)
[2018-02-20] MEDS: IRBESARTAN 300 MG TABLET PO SCH (09:38)
[2018-02-20] MEDS: SODIUM CHLORIDE FLUSH 10ML SYR IVF SCH (09:39)
[2018-02-20] MEDS ORDERED: CHLO25TA PO (10:28)
[2018-02-20] MEDS ORDERED: INSU100I13 SQ-INSULIN (10:28)
[2018-02-20] MEDS ORDERED: CLON0.1T12 PO (10:28)
[2018-02-20] MEDS ORDERED: CEFD300C37 PO (10:29)
[2018-02-20 13:06] VITALS: BP 122/53
== END 2018-02-20 16:23 | DRG 871 ==
LOC: ED 13:03 → EDIP 14:49 → SUATTDRO 15:22 → 4WST 15:36
PROVIDERS: ADMIT Hospitalist; ATTEND Family Medicine
DX: A41.9 Sepsis, unspecified organism (principal); G93.41 Metabolic encephalopathy; E87.1 Hypo-osmolality and hyponatremia; N39.0 Urinary tract infection, site not specified; B96.20 Unspecified Escherichia coli [E. coli] as the cause of diseases classified elsewhere; E86.0 Dehydration; E11.40 Type 2 diabetes mellitus with diabetic neuropathy, unspecified; E11.649 Type 2 diabetes mellitus with hypoglycemia without coma; I10 Essential (primary) hypertension; K21.9 Gastro-esophageal reflux disease without esophagitis; K22.70 Barrett's esophagus without dysplasia; M75.100 Unspecified rotator cuff tear or rupture of unspecified shoulder, not specified as traumatic; G89.29 Other chronic pain; M54.9 Dorsalgia, unspecified; B19.20 Unspecified viral hepatitis C without hepatic coma; Z87.891 Personal history of nicotine dependence; Z87.440 Personal history of urinary (tract) infections; Z85.3 Personal history of malignant neoplasm of breast; Z90.710 Acquired absence of both cervix and uterus
CPT/HCPCS: 36415; 70450; 74022; 80048; 80053; 81001; 82040; 82962; 83036; 83735; 84484; 85025; 85610; 85730; 87077; 87086; 87186; 93005; 96361; 96365; 99285; G0378; J0696; J1650; J2543; J3480; Q0162; J0360; J1815; J3475; J7030

== ENCOUNTER 2018-03-22 15:36 | Inpatient (IN) | payer MEDICARE, OTHER ==
[~2018-03-22] VITALS: Ht 162.6 cm; Wt 59.2 kg
[~2018-03-22 15:36] MED LIST changes: +CHLO25TA PO; +CLON0.1T12 PO; +ESCI10TA PO; +HYDR12.58 PO; +INSU100I13 SQ-INSULIN; +IRBE300T16 PO; +LATA2.5D2 EACHEYE; +MIRA50TA PO
[2018-03-22 16:34] LABS: BASOPHILS # (AUTO) 0.03 x10^3/uL (0-0.1); BASOPHILS % (AUTO) 0 % (0-1); EOSINOPHILS # (AUTO) 0.07 x10^3/uL (0-0.4); EOSINOPHILS % (AUTO) 1 % (1-7); LYMPHOCYTES # (AUTO) 0.71 x10^3/uL (1-3.4); LYMPHOCYTES % (AUTO) 9 % (22-44); MD NO; MEAN CORPUSCULAR HEMOGLOBIN 28.4 pg (27.0-34.8); MEAN CORPUSCULAR HGB CONC 32.7 g/dL (32.4-35.8); MEAN CORPUSCULAR VOLUME 86.8 fL (80-100); MONOCYTES # (AUTO) 0.36 x10^3/uL (0.2-0.8); MONOCYTES % (AUTO) 5 % (2-9); NEUTROPHILS # (AUTO) 6.68 x10^3/uL (1.8-6.8); NEUTROPHILS % (AUTO) 85 % (42-75); PLATELET COUNT 298 x10^3/uL (130-400); RED BLOOD COUNT 2.89 x10^6/uL (3.82-5.3); RED CELL DISTRIBUTION WIDTH 15.1 % (9.6-15.2)
[2018-03-22 16:36] LABS: CULTURE INDICATED? YES; MICROSCOPIC INDICATED
[2018-03-22 16:37] LABS: ALANINE AMINOTRANSFERASE 53 U/L (12-78); ALBUMIN 2.8 g/dL (3.4-5.0); ANION GAP 12 mmol/L (5-15); CALCIUM 8.7 mg/dL (8.5-10.1); CHLORIDE 103 mmol/L (98-107); CREATININE 0.91 mg/dL (0.55-1.02)
[2018-03-22 16:39] LABS: ALKALINE PHOSPHATASE 391 U/L (45-117); BILIRUBIN,TOTAL 0.4 mg/dL (0.2-1.0); TOTAL PROTEIN 6.9 g/dL (6.4-8.2)
[2018-03-22] MEDS ORDERED: CEFTRIAXONE PMX 1GM/50ML 50 ML IV ONE (17:00)
[2018-03-22] MEDS ORDERED: INSULIN REGULAR 100 UNITS/ML, 3ML VIAL SQ-INSULIN SCH (17:00)
[2018-03-22] MEDS ORDERED: CEFTRIAXONE PMX 1GM/50ML 50 ML ONE (17:05)
[2018-03-22] MEDS ORDERED: INSULIN REGULAR 100 UNITS/ML, 3ML VIAL ONE (17:05)
[2018-03-22] MEDS ORDERED: IRBESARTAN 300 MG TABLET PO SCH (17:30)
[2018-03-22] MEDS ORDERED: INSU200I SQ (17:36)
[2018-03-22] MEDS ORDERED: GABA300C10 PO (17:36)
[2018-03-22] MEDS ORDERED: INSU100I13 SQ (17:36)
[2018-03-22 19:03] VITALS: BP 176/67
[2018-03-22] MEDS ORDERED: SODIUM CHLORIDE 0.9% 1,000 ML IV SCH (20:46)
[2018-03-22] MEDS ORDERED: PROMETHAZINE 25 MG/ML, 1ML IM PRN (21:00)
[2018-03-22] MEDS ORDERED: ONDANSETRON ODT 4 MG PO PRN (21:00)
[2018-03-22] MEDS ORDERED: LABETALOL 5MG/ML, 20ML IVPush PRN (21:00)
[2018-03-22] MEDS ORDERED: CEFTRIAXONE PMX 1GM/50ML 50 ML IV SCH (21:00)
[2018-03-22] MEDS ORDERED: hydrALAzine 20 MG/ML, 1ML IVPush PRN (21:00)
[2018-03-22] MEDS ORDERED: DOCUSATE 100 MG CAPSULE PO PRN (21:00)
[2018-03-22] MEDS ORDERED: LATANOPROST OPHTH 0.005%, 2.5ML EACHEYE SCH (21:00)
[2018-03-22] MEDS: TEMPLATE NON-FORMULARY MED. (Brimonidine Tartrate** (Alphagan P**) 1 DROP(S)) EACHEYE SCH (21:00)
[2018-03-22] MEDS ORDERED: CLONIDINE HCL 0.1 MG PO SCH (21:00)
[2018-03-22] MEDS ORDERED: ONDANSETRON 2MG/ML, 2ML IVPush PRN (21:00)
[2018-03-22] MEDS ORDERED: BISACODYL 10 MG SUPP PR PRN (21:00)
[2018-03-22] MEDS ORDERED: ACETAMINOPHEN 325 MG TABLET PO PRN (21:00)
[2018-03-22] MEDS ORDERED: INSULIN LISPRO 100 UNITS/ML, PEN SQ-INSULIN SCH (21:00)
[2018-03-22] MEDS ORDERED: INSULIN GLARGINE 100 UNITS/ML, PEN SQ-INSULIN SCH (21:00)
[2018-03-22] MEDS ORDERED: POLYETHYLENE GLYCOL 17 GM PACKET PO PRN (21:00)
[2018-03-22 21:56] LABS: FREE T4 (FREE THYROXINE) 1.13 ng/dL (0.76-1.46); THYROID STIMULATING HORMONE 2.16 mIU/L (0.358-3.740)
[2018-03-22 22:27] LABS: HEMOGLOBIN A1C 7.4 % (4.2-6.3)
[2018-03-22] MEDS: GABAPENTIN 100 MG CAPSULE PO SCH (23:36)
[2018-03-22] MEDS: COLESTIPOL 1 GM TABLET PO SCH (23:36)
[2018-03-22] MEDS: HEPARIN 5,000 UNITS/ML, 1ML SQ SCH (23:37)
[2018-03-23 03:55] VITALS: BP 183/67
[2018-03-23 04:53] LABS: BASOPHILS # (AUTO) 0.04 x10^3/uL (0-0.1); BASOPHILS % (AUTO) 1 % (0-1); EOSINOPHILS # (AUTO) 0.33 x10^3/uL (0-0.4); EOSINOPHILS % (AUTO) 5 % (1-7); LYMPHOCYTES # (AUTO) 1.54 x10^3/uL (1-3.4); LYMPHOCYTES % (AUTO) 22 % (22-44); MD NO; MEAN CORPUSCULAR HEMOGLOBIN 29.6 pg (27.0-34.8); MEAN CORPUSCULAR HGB CONC 34.2 g/dL (32.4-35.8); MEAN CORPUSCULAR VOLUME 86.6 fL (80-100); MEAN PLATELET VOLUME 8.1 fL (7.4-10.4); MONOCYTES # (AUTO) 0.47 x10^3/uL (0.2-0.8); MONOCYTES % (AUTO) 7 % (2-9); NEUTROPHILS # (AUTO) 4.65 x10^3/uL (1.8-6.8); NEUTROPHILS % (AUTO) 66 % (42-75); PLATELET COUNT 278 x10^3/uL (130-400)
[2018-03-23 05:02] LABS: ALBUMIN 2.7 g/dL (3.4-5.0); ANION GAP 8 mmol/L (5-15); CALCIUM 8.2 mg/dL (8.5-10.1); CHLORIDE 104 mmol/L (98-107)
[2018-03-23 05:06] LABS: ALANINE AMINOTRANSFERASE 50 U/L (12-78); ALKALINE PHOSPHATASE 334 U/L (45-117); BILIRUBIN,TOTAL 0.5 mg/dL (0.2-1.0); CHOL/HDL RATIO 1.8; CHOLESTEROL, TOTAL 112 mg/dL (140-239); CREATININE 0.62 mg/dL (0.55-1.02); HDL CHOL % 57 % (28-40); HDL CHOLESTEROL (DIRECT) 64 mg/dL (40-60); LDL CHOLESTEROL,CALCULATED 25 mg/dL (54-169); LDL/HDL RATIO 0.4 (0.5-3.0); TOTAL PROTEIN 6.3 g/dL (6.4-8.2); TRIGLYCERIDES 117 mg/dL (50-200); VLDL CHOLESTEROL 23 mg/dL (0-25)
[2018-03-23 07:21] VITALS: BP 173/65
[2018-03-23 07:48] VITALS: BP 153/67
[2018-03-23] MEDS ORDERED: MAGNESIUM SULFATE PMX 2GM/50ML 50 ML IV ONE (08:00)
[2018-03-23] MEDS ORDERED: POTASSIUM CHLORIDE 20 MEQ TAB.ER.PRT PO SCH (08:00)
[2018-03-23] MEDS: COLESTIPOL 1 GM TABLET PO SCH ×2 (08:02→19:36)
[2018-03-23] MEDS: HEPARIN 5,000 UNITS/ML, 1ML SQ SCH ×3 (08:02→23:59)
[2018-03-23] MEDS: CHLORTHALIDONE 25 MG TABLET PO SCH (08:03)
[2018-03-23] MEDS: GABAPENTIN 100 MG CAPSULE PO SCH ×3 (08:03→19:36)
[2018-03-23] MEDS: CITALOPRAM 20 MG TABLET PO SCH (08:03)
[2018-03-23] MEDS: AMLODIPINE 5 MG TABLET PO SCH (08:10)
[2018-03-23] MEDS: IRBESARTAN 300 MG TABLET PO SCH (08:12)
[2018-03-23] MEDS: TEMPLATE NON-FORMULARY MED. (Brimonidine Tartrate** (Alphagan P**) 1 DROP(S)) EACHEYE SCH (08:12)
[2018-03-23] MEDS: AMPICILLIN/SULBACTAM 3 GM in SODIUM CHLORIDE 0.9% 100 ML IV SCH ×2 (11:39→19:38)
[2018-03-23 12:00] VITALS: BP 176/65
[2018-03-23 19:07] VITALS: BP_SYST 150; BP_SYST 190; BP_DIAS 68; BP_DIAS 77
[2018-03-23] MEDS: LATANOPROST OPHTH 0.005%, 2.5ML HOMEOPHTH SCH (19:37)
[2018-03-23] MEDS: BRIMONIDINE TARTRATE EACHEYE SCH (19:38)
[2018-03-24] VITALS (9 sets, daily range): BP systolic 113–192; BP diastolic 53–76
[2018-03-24] MEDS: AMPICILLIN/SULBACTAM 3 GM in SODIUM CHLORIDE 0.9% 100 ML IV SCH ×2 (03:46→11:29)
[2018-03-24] MEDS ORDERED: POTASSIUM CHLORIDE 20 MEQ TAB.ER.PRT PO ONE (06:30)
[2018-03-24] MEDS: HEPARIN 5,000 UNITS/ML, 1ML SQ SCH (07:48)
[2018-03-24] MEDS: BRIMONIDINE TARTRATE EACHEYE SCH ×2 (11:35→20:05)
[2018-03-24] MEDS: COLESTIPOL 1 GM TABLET PO SCH ×2 (11:38→20:04)
[2018-03-24] MEDS: AMLODIPINE 5 MG TABLET PO SCH (11:48)
[2018-03-24] MEDS: IRBESARTAN 300 MG TABLET PO SCH (11:51)
[2018-03-24] MEDS: GABAPENTIN 100 MG CAPSULE PO SCH ×3 (11:54→20:04)
[2018-03-24] MEDS: CHLORTHALIDONE 25 MG TABLET PO SCH (11:56)
[2018-03-24] MEDS: CITALOPRAM 20 MG TABLET PO SCH (11:57)
[2018-03-24] MEDS ORDERED: LEVO750T6 PO (12:12)
[2018-03-24] MEDS: LEVOFLOXACIN 750 MG TABLET PO SCH (13:32)
[2018-03-24 13:56] LABS: MEAN CORPUSCULAR HEMOGLOBIN 28.5 pg (27.0-34.8); MEAN CORPUSCULAR VOLUME 86.3 fL (80-100); MEAN PLATELET VOLUME 8.6 fL (7.4-10.4); PLATELET COUNT 247 x10^3/uL (130-400); RED BLOOD COUNT 2.31 x10^6/uL (3.82-5.3); RED CELL DISTRIBUTION WIDTH 14.9 % (9.6-15.2)
[2018-03-24 14:05] LABS: MD YES
[2018-03-24 14:43] LABS: ABSOLUTE RETICS # 0.066 x10^6/uL (0.5-2.5); RETICULOCYTE COUNT % 2.82 % (0.5-1.5)
[2018-03-24 14:56] LABS: RED BLOOD COUNT 2.35 x10^6/uL (3.82-5.3)
[2018-03-24 16:59] LABS: OCCULT BLOOD POSITIVE (NEGATIVE)
[2018-03-24 17:25] LABS: BASOS#(MANUAL) 0.11 x10^3/uL (0-0.1); BASOS% (MANUAL) 2 % (0-1); EOS#(MANUAL) 0.17 x10^3/uL (0.0-0.4); EOS% (MANUAL) 3 % (1-7); LYMPH#(MANUAL) 0.88 x10^3/uL (1-3.4); LYMPHS% (MANUAL) 16 % (22-44); MONOS#(MANUAL) 0.33 x10^3/uL (0.3-2.7); MONOS% (MANUAL) 6 % (2-9); SEG#(MANUAL) 4.02 x10^3/uL (1.8-6.8); SEGS% (MANUAL) 73 % (42-75)
[2018-03-24 17:26] LABS: ANISOCYTOSIS 1+; HYPOCHROMIA 1+; POLYCHROMASIA 1+
[2018-03-24 17:27] LABS: <PLATELET ESTIMATE> ADEQUATE; <PLT MORPHOLOGY> NORMAL PLT MORPH; ROULEAUX 1+
[2018-03-24] MEDS: LATANOPROST OPHTH 0.005%, 2.5ML HOMEOPHTH SCH (20:05)
[2018-03-25 01:04] VITALS: BP 149/62
[2018-03-25 05:06] LABS: ANION GAP 8 mmol/L (5-15); CALCIUM 7.9 mg/dL (8.5-10.1); CHLORIDE 105 mmol/L (98-107); CREATININE 0.76 mg/dL (0.55-1.02)
[2018-03-25 05:10] LABS: BASOPHILS # (AUTO) 0.03 x10^3/uL (0-0.1); BASOPHILS % (AUTO) 1 % (0-1); EOSINOPHILS # (AUTO) 0.34 x10^3/uL (0-0.4); EOSINOPHILS % (AUTO) 7 % (1-7); LYMPHOCYTES # (AUTO) 0.96 x10^3/uL (1-3.4); LYMPHOCYTES % (AUTO) 20 % (22-44); MD NO; MEAN CORPUSCULAR HEMOGLOBIN 29.3 pg (27.0-34.8); MEAN CORPUSCULAR HGB CONC 33.7 g/dL (32.4-35.8); MEAN CORPUSCULAR VOLUME 86.9 fL (80-100); MEAN PLATELET VOLUME 8.8 fL (7.4-10.4); MONOCYTES # (AUTO) 0.43 x10^3/uL (0.2-0.8); MONOCYTES % (AUTO) 9 % (2-9); NEUTROPHILS # (AUTO) 3.01 x10^3/uL (1.8-6.8); NEUTROPHILS % (AUTO) 63 % (42-75); PLATELET COUNT 224 x10^3/uL (130-400); RED BLOOD COUNT 2.77 x10^6/uL (3.82-5.3); RED CELL DISTRIBUTION WIDTH 14.6 % (9.6-15.2)
[2018-03-25 07:45] VITALS: BP 178/62
[2018-03-25] MEDS: BRIMONIDINE TARTRATE EACHEYE SCH ×2 (11:06→20:33)
[2018-03-25] MEDS: GABAPENTIN 100 MG CAPSULE PO SCH ×3 (11:07→20:33)
[2018-03-25] MEDS: FERROUS SULFATE 220 MG/5 ML ORAL SOL PO SCH (11:07)
[2018-03-25] MEDS: AMLODIPINE 5 MG TABLET PO SCH (11:08)
[2018-03-25] MEDS: CHLORTHALIDONE 25 MG TABLET PO SCH (11:08)
[2018-03-25] MEDS: COLESTIPOL 1 GM TABLET PO SCH ×2 (11:08→20:33)
[2018-03-25] MEDS: LEVOFLOXACIN 750 MG TABLET PO SCH (11:09)
[2018-03-25] MEDS: CITALOPRAM 20 MG TABLET PO SCH (11:10)
[2018-03-25] MEDS: IRBESARTAN 300 MG TABLET PO SCH (11:10)
[2018-03-25 12:15] VITALS: BP 128/54
[2018-03-25 20:00] VITALS: BP 146/56
[2018-03-25] MEDS: LATANOPROST OPHTH 0.005%, 2.5ML HOMEOPHTH SCH (20:33)
[2018-03-26 01:43] VITALS: BP 158/52
[2018-03-26 07:13] VITALS: BP 134/69
[2018-03-26 07:58] LABS: BASOPHILS # (AUTO) 0.04 x10^3/uL (0-0.1); BASOPHILS % (AUTO) 1 % (0-1); EOSINOPHILS # (AUTO) 0.33 x10^3/uL (0-0.4); EOSINOPHILS % (AUTO) 6 % (1-7); LYMPHOCYTES # (AUTO) 1.08 x10^3/uL (1-3.4); LYMPHOCYTES % (AUTO) 19 % (22-44); MD NO; MEAN CORPUSCULAR HGB CONC 33.5 g/dL (32.4-35.8); MEAN CORPUSCULAR VOLUME 86.7 fL (80-100); MEAN PLATELET VOLUME 8.3 fL (7.4-10.4); MONOCYTES # (AUTO) 0.41 x10^3/uL (0.2-0.8); MONOCYTES % (AUTO) 7 % (2-9); NEUTROPHILS # (AUTO) 3.88 x10^3/uL (1.8-6.8); NEUTROPHILS % (AUTO) 68 % (42-75); PLATELET COUNT 236 x10^3/uL (130-400); RED BLOOD COUNT 2.94 x10^6/uL (3.82-5.3); RED CELL DISTRIBUTION WIDTH 14.8 % (9.6-15.2)
[2018-03-26] MEDS: AMLODIPINE 5 MG TABLET PO SCH (08:27)
[2018-03-26] MEDS: FERROUS SULFATE 220 MG/5 ML ORAL SOL PO SCH (08:27)
[2018-03-26] MEDS: COLESTIPOL 1 GM TABLET PO SCH (08:27)
[2018-03-26] MEDS: GABAPENTIN 100 MG CAPSULE PO SCH (08:27)
[2018-03-26] MEDS: IRBESARTAN 300 MG TABLET PO SCH (08:27)
[2018-03-26] MEDS: CHLORTHALIDONE 25 MG TABLET PO SCH (08:27)
[2018-03-26] MEDS: CITALOPRAM 20 MG TABLET PO SCH (08:27)
[2018-03-26] MEDS: BRIMONIDINE TARTRATE EACHEYE SCH (08:28)
[2018-03-26] MEDS ORDERED: PANTOPROZOLE 40MG TABLET PO SCH (09:30)
[2018-03-26] MEDS ORDERED: PANT40TA5 PO (10:27)
[2018-03-26] MEDS: LEVOFLOXACIN 750 MG TABLET PO SCH (11:16)
== END 2018-03-26 13:15 | disposition home health service (06) | DRG 377 ==
LOC: ED 17:30 → EDIP 18:12 → 3NW 18:50
PROVIDERS: ADMIT Internal Medicine; ATTEND Internal Medicine
PROC: 0T9B70Z Drainage of Bladder with Drainage Device, Via Natural or Artificial Opening (ICD-10-PCS; 2018-03-22)
PROC: 30233N1 Transfusion of Nonautologous Red Blood Cells into Peripheral Vein, Percutaneous Approach (ICD-10-PCS; principal; 2018-03-24)
DX: K92.2 Gastrointestinal hemorrhage, unspecified (principal); E43 Unspecified severe protein-calorie malnutrition; N39.0 Urinary tract infection, site not specified; D62 Acute posthemorrhagic anemia; E11.51 Type 2 diabetes mellitus with diabetic peripheral angiopathy without gangrene; E11.65 Type 2 diabetes mellitus with hyperglycemia; Z87.891 Personal history of nicotine dependence; Z87.440 Personal history of urinary (tract) infections; D64.9 Anemia, unspecified; G62.9 Polyneuropathy, unspecified; Z68.22 Body mass index [BMI] 22.0-22.9, adult; B95.2 Enterococcus as the cause of diseases classified elsewhere; F03.90 Unspecified dementia, unspecified severity, without behavioral disturbance, psychotic disturbance, mood disturbance, and anxiety; G89.29 Other chronic pain; I10 Essential (primary) hypertension; I45.81 Long QT syndrome; K21.9 Gastro-esophageal reflux disease without esophagitis; K22.70 Barrett's esophagus without dysplasia; M65.9 Synovitis and tenosynovitis, unspecified; S09.90XA Unspecified injury of head, initial encounter; Y93.89 Activity, other specified; W18.30XA Fall on same level, unspecified, initial encounter; Y92.89 Other specified places as the place of occurrence of the external cause; Y99.8 Other external cause status; Z85.3 Personal history of malignant neoplasm of breast; Z90.710 Acquired absence of both cervix and uterus; Z88.2 Allergy status to sulfonamides; Z91.041 Radiographic dye allergy status; M54.9 Dorsalgia, unspecified; E11.40 Type 2 diabetes mellitus with diabetic neuropathy, unspecified; B19.20 Unspecified viral hepatitis C without hepatic coma
CPT/HCPCS: 36415; 70450; 71045; 74250; 80048; 80053; 80061; 81001; 82272; 82306; 82607; 82728; 82962; 83036; 83540; 83550; 83735; 84439; 84443; 84466; 85014; 85018; 85025; 85045; 86850; 86900; 86923; 87077; 87086; 87186; 96365; 96372; 99285; G0378; J0295; J0696; J1644; J1815; J3475; J7030; P9016

== ENCOUNTER 2019-04-26 04:10 | Inpatient (IN) | payer MEDICARE, OTHER ==
[2019-04-26] VITALS (14 sets, daily range): BP systolic 144–205; BP diastolic 67–96
[~2019-04-26] VITALS: Ht 157.5 cm; Wt 56.5 kg
[~2019-04-26 04:10] MED LIST changes: +AMLO-150 PO; -AMLO5TAB7 PO; -CLON0.1T PO; +CLON0.1T22 PO; +FERR325T18 PO; +GABA300C10 PO; -HYDR-3307 PO; +HYDR-36 PO; -HYDR12.58 PO; +HYDROCHLOROTH12.5 MG PO; +INSU100I13 SQ; +INSU200I SQ; +LEVO750T6 PO; +LOSA100T14 PO; -LOSA100T7 PO; +PANT40TA5 PO; +SENN-177 PO; +SITA50TA PO; +iron
--- NOTE | 2019-04-26 04:25 | NUR ---
PT BIB [facility] FROM HOME, PER REPORT PT LIVES W/ CAREGIVER WHO FOUND PT VOMITING LARGE AMOUNTS OF BLOOD THIS AM. UPON ARRIVAL TO ED, PT THROWING UP LARGE AMOUNTS OF BLOOD. PT C/O RECTAL PAIN, DENIED CP, DENIES C/O ABD PAIN AT THIS TIME, REPORTS THROAT IS "SORE." PT HAS A #20G PIV IN RW, RECEIVED 250ML NS VIA [facility] CORRUGATOR OPERATOR. PT PLACED ON INFORMATION SYSTEMS ANALYST, SUCTION AVAILABLE AT BEDSIDE. CALL LIGHT IN HAND.
[2019-04-26] MEDS ORDERED: PANTOPRAZOLE 80 MG in SODIUM CHLORIDE 0.9% 50 ML IVPB ONE (04:35)
[2019-04-26] MEDS ORDERED: VALSARTAN (04:44)
[2019-04-26] MEDS ORDERED: [UNRECOGNIZED DRUG - OTHER] (04:44)
[2019-04-26] MEDS ORDERED: CITA20TA6 PO (04:44)
[2019-04-26] MEDS ORDERED: LEVO25TA4 PO (04:44)
[2019-04-26] MEDS ORDERED: OCTREOTIDE 100MCG/ML, 1ML (0.1MG/ML) ONE (04:45)
[2019-04-26] MEDS ORDERED: PANTOPRAZOLE 40 MG IV ONE (04:45)
[2019-04-26] MEDS ORDERED: PANTOPRAZOLE 40 MG IV IVPush ONE (05:00)
[2019-04-26] MEDS ORDERED: OCTREOTIDE 100MCG/ML, 1ML (0.1MG/ML) IV ONE (05:00)
[2019-04-26] MEDS ORDERED: SODIUM CHLORIDE 0.9% 1,000ML IVBOLUS ONE (05:00)
[2019-04-26] MEDS ORDERED: SODIUM CHLORIDE FLUSH 10ML SYR IVF ONE (05:00)
[2019-04-26 05:02] LABS: BASOPHILS # (AUTO) 0.04 x10^3/uL (0-0.1); BASOPHILS % (AUTO) 1 % (0-1); EOSINOPHILS # (AUTO) 0.36 x10^3/uL (0-0.4); EOSINOPHILS % (AUTO) 5 % (1-7); LYMPHOCYTES % (AUTO) 10 % (22-44); MD NO; MEAN CORPUSCULAR HGB CONC 32.9 g/dL (32.4-35.8); MEAN CORPUSCULAR VOLUME 100.2 fL (80-100); MONOCYTES # (AUTO) 0.44 x10^3/uL (0.2-0.8); MONOCYTES % (AUTO) 6 % (2-9); NEUTROPHILS # (AUTO) 6.03 x10^3/uL (1.8-6.8); NEUTROPHILS % (AUTO) 79 % (42-75); PLATELET COUNT 206 x10^3/uL (130-400); RED BLOOD COUNT 2.67 x10^6/uL (3.82-5.3); RED CELL DISTRIBUTION WIDTH 16.5 % (9.6-15.2)
--- NOTE | 2019-04-26 05:03 | NUR ---
TASK RN: PT. MEDICATED PER MAR, MEDS INFUSING PER ORDER. PT. HAD LARGE AMOUNT OF THICK BLOODY EMESIS; AWARE OF THIS. ALL MONITORS/SAFETY MEASURES IN PLACE. NSR NOTED ON MONITOR. SON AT FOR SUPPORT.
[2019-04-26 05:05] LABS: INTERNATIONAL NORMALIZED RATIO 1.22 (0.93-1.1); PROTHROMBIN TIME 12.7 Seconds (9.6-11.5)
[2019-04-26 05:07] LABS: ALBUMIN 2.8 g/dL (3.4-5.0); ANION GAP 10 mmol/L (5-15); CALCIUM 8.2 mg/dL (8.5-10.1); CHLORIDE 106 mmol/L (98-107)
[2019-04-26 05:11] LABS: ALANINE AMINOTRANSFERASE 45 U/L (12-78); ALKALINE PHOSPHATASE 182 U/L (45-117); BILIRUBIN,TOTAL 0.4 mg/dL (0.2-1.0); CREATININE 1.02 mg/dL (0.55-1.02); TOTAL PROTEIN 5.8 g/dL (6.4-8.2)
--- NOTE | 2019-04-26 05:29 | NUR ---
BLOOD CONSENT SIGNED BY PT'S SON (POA) AND PLACED IN PT'S CHART
--- NOTE | 2019-04-26 05:45 | NUR ---
[facility]'S TRANSFUSION STARTED, CHECKED PT'S BAND AND BLOOD PRODUCT X 2 RN'S.
--- NOTE | 2019-04-26 06:18 | NUR ---
LATE ENTRY 0600- PT TOLERATING BLOOD TRANSFUSION, MONITORS IN PLACE, SIDERAILS UP X2, CALL LIGHT WITHIN REACH.
[2019-04-26] MEDS ORDERED: cloniDINE 0.1MG PATCH TD SCH (07:30)
[2019-04-26] MEDS ORDERED: OCTREOTIDE 500 MCG in SODIUM CHLORIDE 0.9% 249 ML IV SCH (07:30)
[2019-04-26] MEDS ORDERED: ACETAMINOPHEN 325 MG TABLET PO PRN (07:30)
[2019-04-26] MEDS ORDERED: INSULIN LISPRO 100 UNITS/ML, PEN SQ-INSULIN SCH (07:30)
[2019-04-26] MEDS ORDERED: PANTOPRAZOLE 80 MG in SODIUM CHLORIDE 0.9% 100 ML IV SCH (07:30)
[2019-04-26] MEDS ORDERED: ONDANSETRON 2MG/ML, 2ML IVPush PRN (07:30)
[2019-04-26] MEDS ORDERED: ENALAPRILAT 1.25 MG/ML, 2ML IVPush PRN (07:30)
[2019-04-26] MEDS ORDERED: ONDANSETRON ODT 4 MG PO PRN (07:30)
[2019-04-26] MEDS ORDERED: PLEASE ENTER WEIGHT MC SCH (08:00)
[2019-04-26] MEDS: hydrALAzine 20 MG/ML, 1ML IVPush PRN ×2 (09:55→16:36)
[2019-04-26 10:26] LABS: BASOPHILS # (AUTO) 0.04 x10^3/uL (0-0.1); BASOPHILS % (AUTO) 1 % (0-1); EOSINOPHILS # (AUTO) 0.17 x10^3/uL (0-0.4); EOSINOPHILS % (AUTO) 2 % (1-7); LYMPHOCYTES % (AUTO) 10 % (22-44); MD NO; MEAN CORPUSCULAR HEMOGLOBIN 33.3 pg (27.0-34.8); MEAN CORPUSCULAR HGB CONC 33.4 g/dL (32.4-35.8); MEAN CORPUSCULAR VOLUME 99.4 fL (80-100); MONOCYTES # (AUTO) 0.56 x10^3/uL (0.2-0.8); MONOCYTES % (AUTO) 7 % (2-9); NEUTROPHILS # (AUTO) 6.44 x10^3/uL (1.8-6.8); NEUTROPHILS % (AUTO) 80 % (42-75); PLATELET COUNT 190 x10^3/uL (130-400); RED BLOOD COUNT 3.26 x10^6/uL (3.82-5.3); RED CELL DISTRIBUTION WIDTH 17.2 % (9.6-15.2)
[2019-04-26] MEDS ORDERED: METOCLOPRAMIDE 5 MG/ML, 2ML IVPush ONE (11:30)
[2019-04-26] MEDS ORDERED: PROPOFOL 10 MG/ML, 20ML ONE ×2 (12:24)
[2019-04-26] MEDS ORDERED: HALOPERIDOL 5 MG/ML IV PRN (13:30)
[2019-04-26] MEDS ORDERED: ONDANSETRON ODT 8 MG PO PRN (13:30)
[2019-04-26] MEDS ORDERED: hydrALAzine 20 MG/ML, 1ML IV PRN (13:30)
[2019-04-26] MEDS ORDERED: MEPERIDINE/PF 25MG/ML,1ML IVPush PRN (13:30)
[2019-04-26] MEDS ORDERED: FENTANYL PF 100 MCG/2ML IV PRN (13:30)
[2019-04-26] MEDS ORDERED: MIDAZOLAM 1 MG/ML, 2ML IV PRN (13:30)
[2019-04-26] MEDS ORDERED: ONDANSETRON 2MG/ML, 2ML IV PRN (13:30)
[2019-04-26] MEDS ORDERED: DIAZEPAM 5 MG/ML, 2ML IVPush PRN (13:30)
[2019-04-26] MEDS ORDERED: ALBUTEROL SULFATE 2.5 MG/3 ML NPPB PRN (13:30)
[2019-04-26] MEDS ORDERED: PROMETHAZINE 25 MG/ML, 1ML IV PRN (13:30)
[2019-04-26] MEDS ORDERED: EPHEDRINE 50 MG/ML, 1ML IVPush PRN (13:30)
[2019-04-26] MEDS ORDERED: HYDROmorphone 2 MG/ML, 1ML IVPush PRN (13:30)
[2019-04-26] MEDS ORDERED: PROMETHAZINE 12.5 MG SUPP PR PRN (13:30)
[2019-04-26] MEDS ORDERED: LABETALOL 5MG/ML, 20ML IV PRN (13:30)
[2019-04-26] MEDS ORDERED: OXYcodone 5 MG/5 ML ORAL.SOL UDC PO PRN (13:30)
[2019-04-26] MEDS ORDERED: PANTOPROZOLE 40MG TABLET PO SCH (15:00)
[2019-04-26] MEDS ORDERED: ENALAPRILAT 1.25 MG/ML, 1ML ONE (15:07)
[2019-04-26] MEDS ORDERED: CLON0.1T2 PO (16:01)
[2019-04-26] MEDS ORDERED: MIRA50TA PO (16:01)
[2019-04-26] MEDS ORDERED: VALS320T15 PO (16:05)
[2019-04-26] MEDS ORDERED: CHLORTHALIDONE 25 MG TABLET PO SCH (17:00)
[2019-04-26] MEDS ORDERED: VALSARTAN 160 MG TABLET PO SCH (17:00)
[2019-04-26] MEDS ORDERED: [UNRECOGNIZED DRUG - OTHER] MC SCH (17:00)
[2019-04-26] MEDS: INSULIN LISPRO 100 UNITS/ML, PEN SQ-INSULIN SCH ×2 (17:27→22:00)
[2019-04-26] MEDS ORDERED: ICN CLONIDINE 4MCG/ML ORAL.DIL PO SCH (21:00)
[2019-04-26] MEDS: BRIMONIDINE TARTRATE 0.15% EACHEYE SCH (22:00)
[2019-04-26] MEDS: LATANOPROST OPHTH 0.005%, 2.5ML OP SCH (22:00)
[2019-04-26] MEDS: GABAPENTIN 300 MG CAPSULE PO SCH (22:00)
[2019-04-26] MEDS: COLESTIPOL 1 GM TABLET PO SCH (22:00)
[2019-04-27 01:28] VITALS: BP 124/72
[2019-04-27 02:56] LABS: BASOPHILS # (AUTO) 0.04 x10^3/uL (0-0.1); BASOPHILS % (AUTO) 0 % (0-1); EOSINOPHILS # (AUTO) 0.04 x10^3/uL (0-0.4); EOSINOPHILS % (AUTO) 0 % (1-7); LYMPHOCYTES # (AUTO) 0.59 x10^3/uL (1-3.4); LYMPHOCYTES % (AUTO) 5 % (22-44); MD NO; MEAN CORPUSCULAR HEMOGLOBIN 31.7 pg (27.0-34.8); MEAN CORPUSCULAR HGB CONC 33.2 g/dL (32.4-35.8); MEAN CORPUSCULAR VOLUME 95.5 fL (80-100); MEAN PLATELET VOLUME 8.8 fL (7.4-10.4); MONOCYTES % (AUTO) 5 % (2-9); NEUTROPHILS # (AUTO) 9.75 x10^3/uL (1.8-6.8); NEUTROPHILS % (AUTO) 89 % (42-75); PLATELET COUNT 166 x10^3/uL (130-400); RED BLOOD COUNT 3.76 x10^6/uL (3.82-5.3); RED CELL DISTRIBUTION WIDTH 18.9 % (9.6-15.2)
[2019-04-27 03:03] LABS: ALBUMIN 2.8 g/dL (3.4-5.0); ANION GAP 7 mmol/L (5-15); CALCIUM 8.4 mg/dL (8.5-10.1); CHLORIDE 111 mmol/L (98-107)
[2019-04-27 03:06] LABS: ALANINE AMINOTRANSFERASE 39 U/L (12-78); ALKALINE PHOSPHATASE 134 U/L (45-117); BILIRUBIN,TOTAL 1.1 mg/dL (0.2-1.0); TOTAL PROTEIN 5.8 g/dL (6.4-8.2)
[2019-04-27] MEDS: INSULIN LISPRO 100 UNITS/ML, PEN SQ-INSULIN SCH ×4 (07:00→21:21)
[2019-04-27 07:11] VITALS: BP_SYST 89; BP_SYST 91; BP_DIAS 57; BP_DIAS 58
[2019-04-27] MEDS: LEVOTHYROXINE 25 MCG TABLET PO SCH (08:00)
[2019-04-27] MEDS: SODIUM CHLORIDE 0.9% 1,000 ML IV SCH ×2 (08:19→21:20)
[2019-04-27] MEDS: PANTOPRAZOLE 40 MG IV IVPush SCH ×2 (08:20→16:55)
[2019-04-27] MEDS: FERROUS SULFATE 325 MG TABLET PO SCH (09:00)
[2019-04-27] MEDS: CITALOPRAM 20 MG TABLET PO SCH (09:00)
[2019-04-27] MEDS: GABAPENTIN 300 MG CAPSULE PO SCH ×2 (09:00→21:09)
[2019-04-27] MEDS: ASCORBIC ACID 500 MG TABLET PO SCH (09:00)
[2019-04-27] MEDS: ESCITALOPRAM 10MG TABLET PO SCH (09:00)
[2019-04-27] MEDS: COLESTIPOL 1 GM TABLET PO SCH ×2 (09:00→21:09)
[2019-04-27] MEDS: BRIMONIDINE TARTRATE 0.15% EACHEYE SCH ×2 (09:33→21:21)
--- NOTE | 2019-04-27 14:41 | NUR ---
REC: Chopped/thin liquids; 1:1 supervision/assistance with all meals; no orange sheet indicated Addendum: 04/27/19 at 1442 by Arely SANDY Amended: Links added.
[2019-04-27 15:00] VITALS: BP 151/54
[2019-04-27 15:08] LABS: MICROSCOPIC AUTO
[2019-04-27 15:58] LABS: CULTURE INDICATED? YES
[2019-04-27] MEDS: CEFTRIAXONE PMX 1GM/50ML 50 ML IV SCH (16:02)
[2019-04-27] MEDS: TAMSULOSIN 0.4 MG CAP.ER.24H PO SCH (16:03)
[2019-04-27] MEDS: DOXYCYCLINE 100 MG in DEXTROSE 5% 250 ML IV SCH (16:55)
[2019-04-27 19:38] VITALS: BP 151/67
[2019-04-27 21:08] VITALS: BP 145/80
[2019-04-27] MEDS: LATANOPROST OPHTH 0.005%, 2.5ML OP SCH (21:21)
[2019-04-28] VITALS (7 sets, daily range): BP systolic 95–155; BP diastolic 56–84
[2019-04-28] MEDS: DOXYCYCLINE 100 MG in DEXTROSE 5% 250 ML IV SCH ×2 (05:24→17:21)
[2019-04-28] MEDS: PANTOPRAZOLE 40 MG IV IVPush SCH (05:25)
[2019-04-28] MEDS: LEVOTHYROXINE 25 MCG TABLET PO SCH (05:25)
[2019-04-28] MEDS: SODIUM CHLORIDE 0.9% 1,000 ML IV SCH ×2 (05:25→16:35)
[2019-04-28 05:35] LABS: BASOPHILS # (AUTO) 0.03 x10^3/uL (0-0.1); BASOPHILS % (AUTO) 1 % (0-1); EOSINOPHILS # (AUTO) 0.36 x10^3/uL (0-0.4); EOSINOPHILS % (AUTO) 7 % (1-7); LYMPHOCYTES # (AUTO) 1.12 x10^3/uL (1-3.4); LYMPHOCYTES % (AUTO) 21 % (22-44); MD NO; MEAN CORPUSCULAR HEMOGLOBIN 32.4 pg (27.0-34.8); MEAN CORPUSCULAR HGB CONC 33.5 g/dL (32.4-35.8); MEAN CORPUSCULAR VOLUME 96.8 fL (80-100); MEAN PLATELET VOLUME 8.8 fL (7.4-10.4); MONOCYTES # (AUTO) 0.33 x10^3/uL (0.2-0.8); MONOCYTES % (AUTO) 6 % (2-9); NEUTROPHILS # (AUTO) 3.42 x10^3/uL (1.8-6.8); NEUTROPHILS % (AUTO) 65 % (42-75); PLATELET COUNT 123 x10^3/uL (130-400); RED CELL DISTRIBUTION WIDTH 18.6 % (9.6-15.2)
[2019-04-28 05:45] LABS: ALBUMIN 2.4 g/dL (3.4-5.0); ANION GAP 6 mmol/L (5-15); CALCIUM 7.9 mg/dL (8.5-10.1); CHLORIDE 112 mmol/L (98-107)
[2019-04-28 05:49] LABS: ALANINE AMINOTRANSFERASE 28 U/L (12-78); ALKALINE PHOSPHATASE 108 U/L (45-117); BILIRUBIN,TOTAL 0.7 mg/dL (0.2-1.0); CREATININE 0.55 mg/dL (0.55-1.02); TOTAL PROTEIN 5.1 g/dL (6.4-8.2)
[2019-04-28] MEDS: ESCITALOPRAM 10MG TABLET PO SCH (08:52)
[2019-04-28] MEDS: INSULIN LISPRO 100 UNITS/ML, PEN SQ-INSULIN SCH ×4 (08:52→21:19)
[2019-04-28] MEDS: ASCORBIC ACID 500 MG TABLET PO SCH (08:52)
[2019-04-28] MEDS: COLESTIPOL 1 GM TABLET PO SCH ×2 (08:52→21:18)
[2019-04-28] MEDS: TAMSULOSIN 0.4 MG CAP.ER.24H PO SCH (08:52)
[2019-04-28] MEDS: CITALOPRAM 20 MG TABLET PO SCH (08:52)
[2019-04-28] MEDS: GABAPENTIN 300 MG CAPSULE PO SCH ×2 (08:52→21:18)
[2019-04-28] MEDS: FERROUS SULFATE 325 MG TABLET PO SCH (08:52)
[2019-04-28] MEDS: BRIMONIDINE TARTRATE 0.15% EACHEYE SCH ×2 (09:00→21:19)
[2019-04-28] MEDS ORDERED: VANCOMYCIN PER PHARMACY MC PRN (11:30)
[2019-04-28] MEDS ORDERED: VANCOMYCIN PMX 1GM/200ML 200 ML IV SCH (11:30)
[2019-04-28] MEDS ORDERED: PHARMACOKINETIC MONITORING MC PRN (11:30)
[2019-04-28] MEDS: CEFTRIAXONE PMX 1GM/50ML 50 ML IV SCH (16:35)
[2019-04-28] MEDS: PANTOPROZOLE 40MG TABLET PO SCH (21:18)
[2019-04-28] MEDS: LATANOPROST OPHTH 0.005%, 2.5ML OP SCH (21:19)
[2019-04-29 00:12] VITALS: BP 102/62
[2019-04-29] MEDS: SODIUM CHLORIDE 0.9% 1,000 ML IV SCH (01:45)
[2019-04-29] MEDS: LEVOTHYROXINE 25 MCG TABLET PO SCH (05:37)
[2019-04-29] MEDS: DOXYCYCLINE 100 MG in DEXTROSE 5% 250 ML IV SCH ×2 (05:38→17:27)
[2019-04-29 06:26] LABS: BASOPHILS # (AUTO) 0.03 x10^3/uL (0-0.1); BASOPHILS % (AUTO) 1 % (0-1); EOSINOPHILS # (AUTO) 0.39 x10^3/uL (0-0.4); EOSINOPHILS % (AUTO) 8 % (1-7); LYMPHOCYTES # (AUTO) 0.94 x10^3/uL (1-3.4); LYMPHOCYTES % (AUTO) 19 % (22-44); MD NO; MEAN CORPUSCULAR HEMOGLOBIN 32.5 pg (27.0-34.8); MEAN CORPUSCULAR HGB CONC 33.3 g/dL (32.4-35.8); MEAN CORPUSCULAR VOLUME 97.7 fL (80-100); MONOCYTES # (AUTO) 0.36 x10^3/uL (0.2-0.8); MONOCYTES % (AUTO) 7 % (2-9); NEUTROPHILS # (AUTO) 3.16 x10^3/uL (1.8-6.8); NEUTROPHILS % (AUTO) 65 % (42-75); PLATELET COUNT 127 x10^3/uL (130-400); RED BLOOD COUNT 2.94 x10^6/uL (3.82-5.3); RED CELL DISTRIBUTION WIDTH 17.8 % (9.6-15.2)
[2019-04-29 06:38] LABS: ALANINE AMINOTRANSFERASE 32 U/L (12-78); ALBUMIN 2.3 g/dL (3.4-5.0); CHLORIDE 112 mmol/L (98-107); CREATININE 0.44 mg/dL (0.55-1.02)
[2019-04-29 06:47] LABS: ALKALINE PHOSPHATASE 146 U/L (45-117); ANION GAP 7 mmol/L (5-15); BILIRUBIN,TOTAL 0.5 mg/dL (0.2-1.0); CALCIUM 7.6 mg/dL (8.5-10.1); TOTAL PROTEIN 4.9 g/dL (6.4-8.2)
[2019-04-29] MEDS: VANCOMYCIN PMX 1GM/200ML 200 ML IV SCH ×2 (09:00→09:33)
[2019-04-29] MEDS: BRIMONIDINE TARTRATE 0.15% EACHEYE SCH ×2 (09:00→21:00)
[2019-04-29] MEDS: INSULIN LISPRO 100 UNITS/ML, PEN SQ-INSULIN SCH ×4 (09:33→21:45)
[2019-04-29] MEDS: LACTATED RINGERS 1,000 ML IV SCH (09:33)
[2019-04-29] MEDS: COLESTIPOL 1 GM TABLET PO SCH ×2 (09:34→21:44)
[2019-04-29] MEDS: POTASSIUM CHLORIDE 20 MEQ TAB.ER.PRT PO SCH ×2 (09:34→17:30)
[2019-04-29] MEDS: FERROUS SULFATE 325 MG TABLET PO SCH (09:34)
[2019-04-29] MEDS: ASCORBIC ACID 500 MG TABLET PO SCH (09:34)
[2019-04-29] MEDS: PANTOPROZOLE 40MG TABLET PO SCH ×2 (09:35→21:44)
[2019-04-29] MEDS: CITALOPRAM 20 MG TABLET PO SCH (09:35)
[2019-04-29] MEDS: TAMSULOSIN 0.4 MG CAP.ER.24H PO SCH (09:35)
[2019-04-29] MEDS: GABAPENTIN 300 MG CAPSULE PO SCH ×2 (09:35→21:44)
[2019-04-29] MEDS: ESCITALOPRAM 10MG TABLET PO SCH (09:35)
[2019-04-29 09:58] VITALS: BP 147/63
[2019-04-29 14:14] VITALS: BP 95/56
[2019-04-29 14:59] VITALS: BP 99/61
[2019-04-29] MEDS: CEFTRIAXONE PMX 1GM/50ML 50 ML IV SCH (16:30)
[2019-04-29] MEDS: LATANOPROST OPHTH 0.005%, 2.5ML OP SCH (21:00)
[2019-04-29 21:35] VITALS: BP 171/78
[2019-04-29 22:53] VITALS: BP 110/64
[2019-04-30 00:05] VITALS: BP 105/58
[2019-04-30] MEDS: LACTATED RINGERS 1,000 ML IV SCH (00:26)
[2019-04-30] MEDS: DOXYCYCLINE 100 MG in DEXTROSE 5% 250 ML IV SCH (05:18)
[2019-04-30] MEDS: LEVOTHYROXINE 25 MCG TABLET PO SCH (05:18)
[2019-04-30 05:56] LABS: CHLORIDE 113 mmol/L (98-107)
[2019-04-30 06:03] LABS: ALANINE AMINOTRANSFERASE 49 U/L (12-78); ALBUMIN 2.2 g/dL (3.4-5.0); ALKALINE PHOSPHATASE 193 U/L (45-117); ANION GAP 4 mmol/L (5-15); BILIRUBIN,TOTAL 0.5 mg/dL (0.2-1.0); CALCIUM 7.8 mg/dL (8.5-10.1); CREATININE 0.43 mg/dL (0.55-1.02); TOTAL PROTEIN 4.8 g/dL (6.4-8.2)
[2019-04-30 06:14] LABS: BASOPHILS # (AUTO) 0.03 x10^3/uL (0-0.1); BASOPHILS % (AUTO) 1 % (0-1); EOSINOPHILS # (AUTO) 0.33 x10^3/uL (0-0.4); EOSINOPHILS % (AUTO) 9 % (1-7); LYMPHOCYTES # (AUTO) 0.93 x10^3/uL (1-3.4); LYMPHOCYTES % (AUTO) 25 % (22-44); MD NO; MEAN CORPUSCULAR HEMOGLOBIN 31.6 pg (27.0-34.8); MEAN CORPUSCULAR HGB CONC 32.8 g/dL (32.4-35.8); MEAN CORPUSCULAR VOLUME 96.2 fL (80-100); MEAN PLATELET VOLUME 8.5 fL (7.4-10.4); MONOCYTES # (AUTO) 0.32 x10^3/uL (0.2-0.8); MONOCYTES % (AUTO) 9 % (2-9); NEUTROPHILS # (AUTO) 2.13 x10^3/uL (1.8-6.8); NEUTROPHILS % (AUTO) 57 % (42-75); PLATELET COUNT 124 x10^3/uL (130-400); RED CELL DISTRIBUTION WIDTH 17.5 % (9.6-15.2)
[2019-04-30] MEDS: INSULIN LISPRO 100 UNITS/ML, PEN SQ-INSULIN SCH ×4 (07:00→22:56)
[2019-04-30 07:28] VITALS: BP 123/79
[2019-04-30] MEDS: GABAPENTIN 300 MG CAPSULE PO SCH ×2 (09:43→23:02)
[2019-04-30] MEDS: VANCOMYCIN PMX 1GM/200ML 200 ML IV SCH (09:43)
[2019-04-30] MEDS: PANTOPROZOLE 40MG TABLET PO SCH ×2 (09:43→23:03)
[2019-04-30] MEDS: POTASSIUM CHLORIDE 20 MEQ TAB.ER.PRT PO SCH ×2 (09:43→16:54)
[2019-04-30] MEDS: DOXYCYCLINE 100MG TABLET PO SCH ×2 (09:43→23:03)
[2019-04-30] MEDS: COLESTIPOL 1 GM TABLET PO SCH ×2 (09:43→23:04)
[2019-04-30] MEDS: FERROUS SULFATE 325 MG TABLET PO SCH (09:43)
[2019-04-30] MEDS: CITALOPRAM 20 MG TABLET PO SCH (09:43)
[2019-04-30] MEDS: ASCORBIC ACID 500 MG TABLET PO SCH (09:44)
[2019-04-30] MEDS: BRIMONIDINE TARTRATE OPHTH 0.15%, 5ML EACHEYE SCH ×2 (09:44→22:59)
[2019-04-30] MEDS: TAMSULOSIN 0.4 MG CAP.ER.24H PO SCH (09:44)
[2019-04-30] MEDS: ESCITALOPRAM 10MG TABLET PO SCH (09:44)
[2019-04-30] MEDS: CEFDINIR 300 MG CAPSULE PO SCH ×2 (09:44→23:00)
[2019-04-30 13:34] VITALS: BP 107/70
[2019-04-30 19:45] VITALS: BP 160/82
[2019-04-30] MEDS: LATANOPROST OPHTH 0.005%, 2.5ML OP SCH (22:57)
[2019-04-30 23:07] VITALS: BP 193/79
[2019-05-01 02:09] VITALS: BP 109/63
[2019-05-01] MEDS: LEVOTHYROXINE 25 MCG TABLET PO SCH (05:38)
[2019-05-01 06:11] LABS: CHLORIDE 109 mmol/L (98-107)
[2019-05-01 06:18] LABS: BASOPHILS # (AUTO) 0.03 x10^3/uL (0-0.1); BASOPHILS % (AUTO) 1 % (0-1); EOSINOPHILS # (AUTO) 0.35 x10^3/uL (0-0.4); EOSINOPHILS % (AUTO) 8 % (1-7); LYMPHOCYTES # (AUTO) 1.04 x10^3/uL (1-3.4); LYMPHOCYTES % (AUTO) 23 % (22-44); MD NO; MEAN CORPUSCULAR HEMOGLOBIN 32.6 pg (27.0-34.8); MEAN CORPUSCULAR HGB CONC 33.4 g/dL (32.4-35.8); MEAN CORPUSCULAR VOLUME 97.6 fL (80-100); MEAN PLATELET VOLUME 8.7 fL (7.4-10.4); MONOCYTES # (AUTO) 0.43 x10^3/uL (0.2-0.8); MONOCYTES % (AUTO) 10 % (2-9); NEUTROPHILS # (AUTO) 2.72 x10^3/uL (1.8-6.8); NEUTROPHILS % (AUTO) 60 % (42-75); PLATELET COUNT 140 x10^3/uL (130-400)
[2019-05-01 06:24] LABS: ALANINE AMINOTRANSFERASE 63 U/L (12-78); ALBUMIN 2.3 g/dL (3.4-5.0); ALKALINE PHOSPHATASE 204 U/L (45-117); ANION GAP 8 mmol/L (5-15); BILIRUBIN,TOTAL 0.6 mg/dL (0.2-1.0); CALCIUM 7.9 mg/dL (8.5-10.1); CREATININE 0.48 mg/dL (0.55-1.02); TOTAL PROTEIN 4.9 g/dL (6.4-8.2)
[2019-05-01 07:46] VITALS: BP 127/77
[2019-05-01] MEDS ORDERED: LACTATED RINGERS 1,000 ML IV SCH (08:00)
[2019-05-01] MEDS: INSULIN LISPRO 100 UNITS/ML, PEN SQ-INSULIN SCH ×2 (08:05→12:27)
[2019-05-01] MEDS: POTASSIUM CHLORIDE 20 MEQ TAB.ER.PRT PO SCH (10:00)
[2019-05-01] MEDS: BRIMONIDINE TARTRATE OPHTH 0.15%, 5ML EACHEYE SCH (10:01)
[2019-05-01] MEDS: CITALOPRAM 20 MG TABLET PO SCH (10:02)
[2019-05-01] MEDS: COLESTIPOL 1 GM TABLET PO SCH (10:02)
[2019-05-01] MEDS: FERROUS SULFATE 325 MG TABLET PO SCH (10:02)
[2019-05-01] MEDS: TAMSULOSIN 0.4 MG CAP.ER.24H PO SCH (10:02)
[2019-05-01] MEDS: ESCITALOPRAM 10MG TABLET PO SCH (10:04)
[2019-05-01] MEDS: DOXYCYCLINE 100MG TABLET PO SCH (10:04)
[2019-05-01] MEDS: GABAPENTIN 300 MG CAPSULE PO SCH (10:04)
[2019-05-01] MEDS: PANTOPROZOLE 40MG TABLET PO SCH (10:04)
[2019-05-01] MEDS: ASCORBIC ACID 500 MG TABLET PO SCH (10:04)
[2019-05-01] MEDS: CEFDINIR 300 MG CAPSULE PO SCH (10:04)
[2019-05-01] MEDS ORDERED: PANT40TA5 PO (11:47)
[2019-05-01] MEDS ORDERED: TAMS-11 PO (11:47)
[2019-05-01] MEDS ORDERED: CEFD300C37 PO (11:47)
[2019-05-01] MEDS ORDERED: DOXY100T PO (11:47)
[2019-05-01] MEDS ORDERED: POTA20TA6 PO (11:47)
[2019-05-01] MEDS ORDERED: FLU VACC QS2019-20 36MOS UP/PF 0.5 ML IM-VACC ONE (14:30)
== END 2019-05-01 16:10 | disposition home or self-care (01) | DRG 377 ==
LOC: ED 05:15 → EDIP 06:26 → 4WST 06:54 → DCLOUNGE 05-01 15:56
PROVIDERS: ADMIT Family Medicine; ATTEND Internal Medicine
PROC: 30233N1 Transfusion of Nonautologous Red Blood Cells into Peripheral Vein, Percutaneous Approach (ICD-10-PCS; 2019-04-26)
PROC: 0W3P8ZZ Control Bleeding in Gastrointestinal Tract, Via Natural or Artificial Opening Endoscopic (ICD-10-PCS; principal; 2019-04-26 12:00)
PROC: 0T9B70Z Drainage of Bladder with Drainage Device, Via Natural or Artificial Opening (ICD-10-PCS; 2019-04-27)
DX: K25.4 Chronic or unspecified gastric ulcer with hemorrhage (principal); J18.9 Pneumonia, unspecified organism; G93.41 Metabolic encephalopathy; D62 Acute posthemorrhagic anemia; E87.2 Acidosis; N39.0 Urinary tract infection, site not specified; K22.8 Other specified diseases of esophagus; K44.9 Diaphragmatic hernia without obstruction or gangrene; B19.20 Unspecified viral hepatitis C without hepatic coma; D75.89 Other specified diseases of blood and blood-forming organs; E03.9 Hypothyroidism, unspecified; E11.40 Type 2 diabetes mellitus with diabetic neuropathy, unspecified; E11.51 Type 2 diabetes mellitus with diabetic peripheral angiopathy without gangrene; E87.5 Hyperkalemia; E87.6 Hypokalemia; F03.90 Unspecified dementia, unspecified severity, without behavioral disturbance, psychotic disturbance, mood disturbance, and anxiety; I10 Essential (primary) hypertension; K21.9 Gastro-esophageal reflux disease without esophagitis; K22.2 Esophageal obstruction; I16.0 Hypertensive urgency; B95.7 Other staphylococcus as the cause of diseases classified elsewhere; I95.9 Hypotension, unspecified; K22.70 Barrett's esophagus without dysplasia; K74.60 Unspecified cirrhosis of liver; Z79.4 Long term (current) use of insulin; Z85.3 Personal history of malignant neoplasm of breast; Z87.440 Personal history of urinary (tract) infections; Z87.891 Personal history of nicotine dependence; Z90.710 Acquired absence of both cervix and uterus; Z88.2 Allergy status to sulfonamides; Z79.899 Other long term (current) drug therapy; Z79.84 Long term (current) use of oral hypoglycemic drugs; Z23 Encounter for immunization
CPT/HCPCS: 36415; 36430; 70450; 71045; 80053; 80202; 81001; 82533; 82607; 82962; 83605; 84443; 85014; 85018; 85025; 85610; 85730; 86850; 86900; 86923; 87040; 87077; 87086; 87186; 90686; 96361; 96374; 96375; 99291; G0378; J0696; J2354; J2405; J2704; J3370; J7060; C9113; J0360; J1815; J2765; J7030; J7050; J7120; P9016

== ENCOUNTER 2019-07-14 16:59 | Emergency (ER) | payer MEDICARE, OTHER ==
[~2019-07-14] VITALS: Ht 162.6 cm; Wt 60.0 kg
[~2019-07-14 16:59] MED LIST changes: +CITA20TA6 PO; +CLON0.1T2 PO; +DOXY100T PO; -IRBE300T16 PO; +IRBE300T8 PO; +LEVO25TA4 PO; +POTA20TA6 PO; +TAMS-11 PO; +VALS320T15 PO; +VALSARTAN; +[UNRECOGNIZED DRUG - OTHER]
--- NOTE | 2019-07-14 17:17 | NUR ---
ISABEL. REPORT RECEIVED FROM EMS. PT'S (DEMENTIA) TRIED TO PICK HER UP FROM [facility] AND PT FELL ON GROUND. PT ALWAYS IN PAIN, SO IT'S HARD TO KNOW WHICH ONE IS NEW PAIN FROM FALL. C/O LEFT HIP PAIN, BUT NOT OBVIOUS DEFORMITY/TRAUMA/SHORTENED. PT'S AOX4, BUT A LITLLE BIT CONFUSED WHICH IS HER BASELINE. PT DENIES IV/PAIN MEDS FROM EMS. PT'S AT BEDSIDE. EDMD AT BEDSIDE TO EVALUATE. RESPS EVEN AND UNLABORED. BP/SPO2 MONITORS IN PLACE.
--- NOTE | 2019-07-14 17:37 | NUR ---
PT'S FAMILY MEMBER FOUND A SMALL COCKROACH IN ROOM. SCIENTIFIC ILLUSTRATOR/NETWORK APPLICATIONS SPECIALIST NOTIFIED. HOUSEKEEPING PAGED. PT MOVED TO ROOM 34.
[2019-07-14 17:44] LABS: BASOPHILS # (AUTO) 0.02 x10^3/uL (0-0.1); BASOPHILS % (AUTO) 0 % (0-1); EOSINOPHILS # (AUTO) 0.39 x10^3/uL (0-0.4); EOSINOPHILS % (AUTO) 7 % (1-7); LYMPHOCYTES # (AUTO) 0.87 x10^3/uL (1-3.4); LYMPHOCYTES % (AUTO) 15 % (22-44); MD NO; MEAN CORPUSCULAR HEMOGLOBIN 32.5 pg (27.0-34.8); MEAN CORPUSCULAR HGB CONC 33.8 g/dL (32.4-35.8); MEAN CORPUSCULAR VOLUME 96.2 fL (80-100); MEAN PLATELET VOLUME 9.4 fL (7.4-10.4); MONOCYTES # (AUTO) 0.43 x10^3/uL (0.2-0.8); MONOCYTES % (AUTO) 7 % (2-9); NEUTROPHILS # (AUTO) 4.18 x10^3/uL (1.8-6.8); NEUTROPHILS % (AUTO) 71 % (42-75); PLATELET COUNT 211 x10^3/uL (130-400); RED BLOOD COUNT 3.64 x10^6/uL (3.82-5.3); RED CELL DISTRIBUTION WIDTH 15.8 % (9.6-15.2)
[2019-07-14 17:52] LABS: ALANINE AMINOTRANSFERASE 35 U/L (12-78); ALBUMIN 3.2 g/dL (3.4-5.0); ANION GAP 8 mmol/L (5-15); CALCIUM 8.7 mg/dL (8.5-10.1); CHLORIDE 106 mmol/L (98-107); CREATININE 0.84 mg/dL (0.55-1.02)
[2019-07-14 17:54] LABS: ALKALINE PHOSPHATASE 174 U/L (45-117); BILIRUBIN,TOTAL 0.6 mg/dL (0.2-1.0); CREATINE KINASE, TOTAL 27 U/L (26-192); TOTAL PROTEIN 6.7 g/dL (6.4-8.2)
[2019-07-14 18:20] VITALS: BP 184/76
--- NOTE | 2019-07-14 18:20 | NUR ---
PT'S STRAIGHT CATH'D USING STERILE TECHNIQUE. PT TOLERATED WELL. THIS RN WALKED TO LAB FOR UA.
[2019-07-14 18:51] LABS: MICROSCOPIC AUTO
[2019-07-14 18:52] LABS: CULTURE INDICATED? YES
--- NOTE | 2019-07-14 19:03 | NUR ---
REPORT FROM [facility]
--- NOTE | 2019-07-14 19:15 | NUR ---
PT ASSISTED W GETTING DRESSED, WHEELED TO DC AREA. GIVEN DC INSTRUCTIONS. PT AGREES
--- NOTE | 2019-07-14 19:47 | NUR ---
Patient/Caregiver given discharge instructions and they have confirmed that they understand the instructions. Patient ambulatory with steady gait.
== END 2019-07-14 19:57 | disposition home or self-care (01) ==
LOC: ED 19:35
DX: M25.552 Pain in left hip (principal); I10 Essential (primary) hypertension; E11.9 Type 2 diabetes mellitus without complications; K21.9 Gastro-esophageal reflux disease without esophagitis; G89.29 Other chronic pain; R01.1 Cardiac murmur, unspecified; Z90.710 Acquired absence of both cervix and uterus; Z87.891 Personal history of nicotine dependence; W18.39XA Other fall on same level, initial encounter; Y93.89 Activity, other specified; Y92.098 Other place in other non-institutional residence as the place of occurrence of the external cause; Y99.8 Other external cause status
CPT/HCPCS: 36415; 71045; 72170; 80053; 81001; 82550; 85025; 87077; 87086; 87186; 99284